=== PATIENT | female | born 1995 | race Asian ===

== ENCOUNTER 2023-02-19 10:02 | Emergency (ER) | payer OTHER, SELFPAY ==
[2023-02-19 10:12] VITALS: BP 113/73; PULSE 81; RESP 14; TEMP 36.1; O2SAT 98; BMI 29.2
[2023-02-19 10:56] LABS: COVID19 -Nasal RAPID Negative (Negative)
[2023-02-19 11:12] LABS: Strep Grp A by PCR Rapid Negative (Negative)
--- NOTE | 2023-02-19 11:13 | ED_ITS ---
HPI - URI/Sore Throat <Elkin Torres PA-C - Last Filed: 02/19/23 11:42> General Chief Complaint: Upper Respiratory Symptoms Stated Complaint: 9 weeks / severe congestion T-5 Time Seen by Provider: 02/19/23 10:53 Source: patient Mode of arrival: Ambulatory History of Present Illness HPI Narrative: 27-year-old female who is 9 weeks presents to the ED with 5 days of upper respiratory symptoms. Patient endorses a sore throat, chills, cough. Patient denies fever, chest pain, shortness of breath, abdominal pain, pelvic pain, pelvic cramping, vaginal bleeding, lightheadedness, dizziness, syncope. Patient states that her cough is somewhat productive, that she saw a tinge of blood in the sputum. Related Data Home Medications Medication Instructions Recorded Confirmed adalimumab 40 mg/0.8 mL 40 mg SUBCUT Q2W 01/23/23 02/19/23 subcutaneous syringe kit (Humira) budesonide 3 mg 9 mg PO DAILY 01/23/23 02/19/23 capsule,delayed,extended release calcium carbonate 500 mg-vitamin 1 tab PO DAILY 01/23/23 02/19/23 D3 3.125 mcg (125 unit) tablet cetirizine 10 mg tablet 10 mg PO DAILY PRN allergies 01/23/23 02/19/23 prenat.vits,braxton,fvs-mpry-mpmhb 1 tab PO DAILY 01/23/23 02/19/23 Allergies Allergy/AdvReac Type Severity Reaction Status Date / Time No Known Drug Allergies Allergy Verified 02/19/23 10:16 Review of Systems <Elkin Torres PA-C - Last Filed: 02/19/23 11:42> Review of Systems ROS Unobtainable: All systems reviewed & are unremarkable except as noted in HPI and below Constitutional Constitutional: Reports chills, Denies fatigue, Denies fever(s), Denies frequent falls, Denies lethargy and Denies weakness Eyes Eyes: Denies change in vision, Denies eye discharge, Denies irritation and Denies loss of vision ENT Ears, Nose, Mouth, and Throat: Denies change in voice, Denies dizziness, Denies neck pain, Reports sore throat and Denies throat swelling Cardiovascular Cardiovascular: Denies chest pain, Denies irregular heart rhythm, Denies lightheadedness, Denies palpitations, Denies dyspnea, Denies dyspnea on exertion and Denies orthopnea Respiratory Respiratory: Reports cough, Denies dyspnea, Denies dyspnea on exertion and Denies wheezing Gastrointestinal Gastrointestinal: Denies abdominal pain, Denies change in bowel habits, Denies diarrhea, Denies nausea and Denies vomiting Genitourinary Genitourinary: Denies hematuria, Denies flank pain, Denies urinary incontinence and Denies urinary urgency Musculoskeletal Musculoskeletal: Denies back pain, Denies muscle weakness, Denies neck pain, Denies numbness and Denies tingling Integumentary/Breasts Skin/Breast: Denies pruritus, Denies erythema, Denies rash and Denies wounds Neurologic Neurologic: Denies behavioral changes, Denies confusion, Denies dizziness, Denies frequent falls, Denies loss of vision, Denies numbness, Denies tingling and Denies weakness Psychiatric Psychiatric: Denies anxiety, Denies behavioral changes, Denies confusion, Denies depression, Denies homicidal ideation and Denies suicidal ideation Endocrine Endocrine: Denies fatigue, Denies flushing and Denies palpitations Hematologic/Lymphatic Hematologic/Lymphatic: Denies easy bruising Allergic/Immunologic Allergic/Immunologic: Denies urticaria, Denies throat swelling and Denies wheezing Patient History <Elkin Torres PA-C - Last Filed: 02/19/23 11:42> Medical History Ectopic (~02/2017) Migraine Seasonal allergies Surgical History H/O laparoscopy (~2014) H/O unilateral salpingectomy Family History Grandmother DVT (deep venous thrombosis) Hyperlipidemia Hypertension Mother DVT (deep venous thrombosis) Grandfather Hyperlipidemia Hypertension Father Family estrangement Social History marital status: unmarried,single number of children: 0 household members: other lives independently: Yes caregiver/support person: No housing: other [place], shared housing w/ other sailors) pets and animals: No education level: college (some college) 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: [employer] special dilia needs: No travel history: over 6 months ago seatbelt use: always water heater temp set < 120 deg: Yes working smoke detector in home: Yes fire extinguisher in home: Yes carbon monox detector in home: Yes firearms in home: No do you feel safe at home: Yes Smoking Status: Former smoker Tobacco: How many years used: 3 second hand exposure: No alcohol intake: former (occasionally when not ) substance use type: does not use during the past year weight has: increased > 10 lbs well-balanced diet: daily or most days daily servings fruits/ve or more times/day caffeine: No Type(s) of exercise: walking Smoking Status: Former smoker alcohol intake frequency: 0-2 drinks per day Substance Use Type: does not use Exam <Elkin Torres PA-C - Last Filed: 02/19/23 11:42> Narrative Exam Narrative: Const General:?cooperative, healthy appearing and comfortable [facility] Head:?normal to inspection Ears:?hearing grossly normal bilaterally Nose:?external nose normal Face and sinus:?normal facial exam and sinuses nontender Mouth:?oral mucosae normal Throat:?posterior oropharynx normal Eyes General:?appearance normal, both eyes and all related structures Neck Neck:?normal visual inspection and no lymphadenopathy noted Resp Effort & Inspection:?normal respiratory effort Auscultation:?clear to auscultation bilaterally Cardio Rate:?regular rate Rhythm:?regular rhythm Neuro General:?patient alert, patient awake and patient oriented x3 Initial Vital Signs Initial Vital Signs: Vital Signs Temperature 97.0 F L 02/19/23 10:12 Pulse Rate 81 02/19/23 10:12 Respiratory Rate 14 02/19/23 10:12 Blood Pressure 113/73 02/19/23 10:12 Pulse Oximetry 98 02/19/23 10:12 Oxygen Delivery Method Room Air 02/19/23 10:12 <Altagracia Ibarra DO - Last Filed: 02/19/23 19:38> Initial Vital Signs Initial Vital Signs: Vital Signs Temperature 97.0 F L 02/19/23 10:12 Pulse Rate 81 02/19/23 10:12 Respiratory Rate 14 02/19/23 10:12 Blood Pressure 113/73 02/19/23 10:12 Pulse Oximetry 98 02/19/23 10:12 Oxygen Delivery Method Room Air 02/19/23 10:12 Course <Elkin Torres PA-C - Last Filed: 02/19/23 11:42> Orders Ordered: ED Orders 02/19/23 11:43 Throat Culture Stat Vital Signs Vital signs: Vital Signs - 8 hr 02/19/23 10:12 02/19/23 11:31 Temperature 97.0 F L Pulse Rate 81 85 Respiratory Rate 14 24 Blood Pressure 113/73 117/64 Pulse Oximetry 98 98 Oxygen Delivery Method Room Air Room Air <DO Bonnie Barnett Last Filed: 02/19/23 19:38> Orders Ordered: ED Orders 02/19/23 11:43 Throat Culture Stat Vital Signs Vital signs: Vital Signs - 8 hr 02/19/23 10:12 02/19/23 11:31 Temperature 97.0 F L Pulse Rate 81 85 Respiratory Rate 14 24 Blood Pressure 113/73 117/64 Pulse Oximetry 98 98 Oxygen Delivery Method Room Air Room Air MDM - URI/Sore Throat <JAN Taylor Last Filed: 02/19/23 11:42> Lab Data Labs: Lab Results 02/19/23 02/19/23 Range/Units 10:25 10:25 SARS-CoV-2 (PCR) Negative (Negative) Group A Strep (PCR) Negative (Negative) MDM Narrative Medical decision making narrative: 27-year-old female who is 9 weeks presents to the ED with 5 days of upper respiratory symptoms. Concern for strep throat versus viral URI versus other. Strep test and COVID-19 negative. Patient's symptoms are most likely consistent with a viral URI. Highly unlikely PE given history. Recommend follow-up with PCP as soon as possible. ED return precautions were discussed with patient. Patient verbalized understanding. Medical records reviewed: Yes <DO Bonnie Barnett Last Filed: 02/19/23 19:38> Lab Data Labs: Lab Results 02/19/23 02/19/23 Range/Units 10:25 10:25 SARS-CoV-2 (PCR) Negative (Negative) Group A Strep (PCR) Negative (Negative) Discharge Plan Departure Patient Disposition: Home Clinical Impression: Upper respiratory infection Instructions: DI for Viral Upper Respiratory Infection -- Adult Activity Restrictions/Additional Instructions: You were evaluated in the ED today for a cough and sore throat. You tested negative for COVID-19 and strep throat. Your symptoms are likely due to a viral upper respiratory infection. You may take Tylenol for aches and pains. You may also take an ywsj-gah-noloxes cough medicine that contains only the ingredient dextromethorphan which is safe during . Please ensure that it does not contain other ingredients including alcohol. Please follow-up with your PCP as soon as possible. Return to the ED if you experience any chest pain or trouble breathing. Prescriptions: No Action prenat.vits,braxton,oxp-xlch-axrih Tablet 1 tab PO DAILY Humira 40 mg/0.8 mL syringe kit 40 mg SUBCUT Q2W budesonide 3 mg capsule,delayed,extend.release 9 mg PO DAILY calcium carbonate-vitamin D3 500 mg-3.125 mcg (125 unit) tablet 1 tab PO DAILY cetirizine 10 mg tablet 10 mg PO DAILY PRN (Reason: allergies) Referrals: ProviderJohann [Primary Care Provider] - Stand Alone Forms: Patient Portal/API <Altagracia Ibarra DO - Last Filed: 02/19/23 19:38> Cosign ED Attending Nataliaature Attestation: I was immediately available in the department for consultation. Documentation has been reviewed.
[2023-02-19 11:31] VITALS: BP 117/64; PULSE 85; RESP 24; O2SAT 98
--- NOTE | 2023-02-23 08:15 | PC.NURSE ---
This patient called into the the department to checking on her culture results as she received a call from the department yesterday. 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 Patient asked for a work note due to illness. This RN asked Dr. Ibarra for permission to add a work note to cover the patient to the [address] Ibarra agreed due to her diagnosis. Work note submitted into patient stand alone forms.
--- NOTE | 2023-02-23 09:22 | PC.NURSE ---
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
== END 2023-02-19 11:43 | disposition home or self-care (01) ==
PROVIDERS: Emergency Medicine; Emergency Provider Student in an Organized Health Care Education/Training Program
DX: J06.9 Acute upper respiratory infection, unspecified (principal); Z20.822 Contact with and (suspected) exposure to COVID-19
CPT/HCPCS: 87070; 87147; 87635; 87651; 99282; C9803

== ENCOUNTER 2023-03-02 23:53 | Emergency (ER) | payer OTHER, SELFPAY ==
[2023-03-03 00:03] VITALS: BP 113/76; PULSE 83; RESP 17; TEMP 36.6; O2SAT 97; BMI 29.5
[2023-03-03 00:13] VITALS: BP 109/53; PULSE 81; RESP 18; O2SAT 99
--- NOTE | 2023-03-03 00:37 | ED_ITS ---
HPI - General Adult General Chief complaint: OB/Uterine Contractions Stated complaint: 11 weeks , severe cramping, bleeding Time Seen by Provider: 03/03/23 00:37 Source: patient Mode of arrival: Ambulatory History of Present Illness HPI narrative: 27-year-old currently at 11 weeks, history of Crohn's disease on Humira and budesonide presents with vaginal bleeding. She was seen by her primary application support analyst on February 21 with a confirmed intrauterine diagnosed with ultrasound in the office. She reports acute onset of vaginal bleeding initially spotting and slightly heavier over the last 4 hours. She is having some lower abdominal cramping and vaginal cramping as well. No fevers, dysuria, diarrhea or constipation. No abdominal pain. Related Data Home Medications Medication Instructions Recorded Confirmed adalimumab 40 mg/0.8 mL 40 mg SUBCUT Q2W 01/23/23 02/21/23 subcutaneous syringe kit (Humira) budesonide 3 mg 9 mg PO DAILY 01/23/23 02/21/23 capsule,delayed,extended release calcium carbonate 500 mg-vitamin 1 tab PO DAILY 01/23/23 02/21/23 D3 3.125 mcg (125 unit) tablet cetirizine 10 mg tablet 10 mg PO DAILY PRN allergies 01/23/23 02/21/23 prenat.vits,braxton,yly-tgnh-hjhrt 1 tab PO DAILY 01/23/23 02/21/23 Previous Rx's Medication Instructions Recorded ondansetron 4 mg disintegrating 4 mg PO Q6H PRN nausea and 02/21/23 tablet vomiting #20 tabs amoxicillin 500 mg tablet 500 mg PO BID #20 tabs 02/22/23 Allergies Allergy/AdvReac Type Severity Reaction Status Date / Time No Known Drug Allergies Allergy Verified 02/21/23 11:26 Review of Systems Review of Systems Narrative: Pertinent positive and negative findings as per HPI Patient History Medical History Ectopic (~02/2017) Migraine Seasonal allergies Surgical History H/O laparoscopy (~2014) H/O unilateral salpingectomy Family History Grandmother DVT (deep venous thrombosis) Hyperlipidemia Hypertension Mother DVT (deep venous thrombosis) Grandfather Hyperlipidemia Hypertension Father Family estrangement Social History marital status: unmarried,single number of children: 0 household members: other lives independently: Yes caregiver/support person: No housing: other ([place], shared housing w/ other sailors) pets and animals: No education level: college (some college) 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: Confucianism special dilia needs: No travel history: over 6 months ago seatbelt use: always water heater temp set < 120 deg: Yes working smoke detector in home: Yes fire extinguisher in home: Yes carbon monox detector in home: Yes firearms in home: No do you feel safe at home: Yes Smoking Status: Former smoker Tobacco: How many years used: 3 second hand exposure: No alcohol intake: former (occasionally when not ) substance use type: does not use during the past year weight has: increased > 10 lbs well-balanced diet: daily or most days daily servings fruits/ve or more times/day caffeine: No Type(s) of exercise: walking Smoking Status: Former smoker alcohol intake frequency: 0-2 drinks per day Substance Use Type: does not use Exam Initial Vital Signs Initial Vital Signs: Vital Signs Temperature 97.8 F 03/03/23 00:03 Pulse Rate 83 03/03/23 00:03 Respiratory Rate 17 03/03/23 00:03 Blood Pressure 113/76 03/03/23 00:03 Pulse Oximetry 97 03/03/23 00:03 Oxygen Delivery Method Room Air 03/03/23 00:03 General: Alert appropriate in no acute distress Respiratory: Able to speak in full sentences, no obvious respiratory distress Skin: No obvious rashes, warm and dry Neurologic: Grossly intact no obvious asymmetries or abnormalities Psych: appropriate insight and affect, cooperative Bedside ultrasound shows a viable intrauterine fetus with a heart rate at 160. There is a large subchorionic hemorrhage with clot measuring 3 x 3 x 4 cm. Bladder is not full enough to see cervical length transabdominally. Course Orders Ordered: ED Orders 03/03/23 01:00 ABO RH Type Stat CBC Auto Diff [Complete Blood Count AUTO DIFF] Stat CMP [Comprehensive Metabolic Panel] Stat Vital Signs Vital signs: Vital Signs - 8 hr 03/03/23 00:03 03/03/23 00:13 03/03/23 01:37 Temperature 97.8 F Pulse Rate 83 81 84 Respiratory Rate 17 18 18 Blood Pressure 113/76 109/53 L 119/71 Pulse Oximetry 97 99 98 Oxygen Delivery Method Room Air Room Air Room Air Medical Decision Making Lab Data 03/03/23 01:00 03/03/23 01:00 Labs: Lab Results 03/03/23 03/03/23 03/03/23 Range/Units 01:00 01:00 01:00 WBC 12.0 H (4.5-11.0) X10^3/uL RBC 3.67 L (4.0-5.2) X10^6/uL Hgb 11.3 L (12.0-16.0) g/dL Hct 32.6 L (36-46) % MCV 88.7 (80-100) fL MCH 30.7 (26-34) PG MCHC 34.6 (30-36) % RDW 13.3 (11.6-14.8) % Plt Count 350 (150-400) X10^3/uL Neut % (Auto) 53.2 (50-75) % Lymph % (Auto) 35.4 (25-40) % Jay % (Auto) 7.9 (3-14) % Eos % (Auto) 3.0 (2-4) % Baso % (Auto) 0.5 (0-2) % Neut # (Auto) 6400 (4899-5114) /uL Lymph # (Auto) 4300 (0183-0671) /uL Jay # (Auto) 1000 H (0-900) /uL Eos # (Auto) 400 (0-450) /uL Baso # (Auto) 100 (0-100) /uL Sodium 135 L (137-145) mmol/L Potassium 3.8 (3.4-5.1) mmol/L Chloride 103 (98-107) mmol/L Carbon Dioxide 24 (22-32) mmol/L BUN 11 (7-17) mg/dL Creatinine 0.60 (0.52-1.04) mg/dL Estimated GFR > 60 (>60) mL/min BUN/Creatinine Ratio 18.3 (6-22) Glucose 98 (70-100) mg/dL Calcium 8.9 (8.4-10.2) mg/dL Total Bilirubin 0.3 (0.2-1.3) mg/dL AST 21 (14-36) IU/L ALT 33 (<35) IU/L Alkaline Phosphatase 38 (38-126) U/L Total Protein 7.4 (6.3-8.2) g/dL Albumin 4.1 (3.5-5.0) g/dL Globulin 3.3 (1.7-4.1) g/dL Albumin/Globulin Ratio 1.2 (1.0-2.8) Blood Type O Positive Urine Dip Bedside Urine Glucose Negative Bedside Urine Bilirubin - Negative Bedside Urine Ketone - Negative Urine Specific Clarks 1.015 Bedside Urine Occult Blood - Negative Bedside Urine pH 6 Bedside Urine Protein - Negative Bedside Urine Urobilinogen - Negative Bedside Urine Nitrite - Negative Bedside Urine Leukocytes - Negative Esterase Point of care testing: Urine Dip Bedside Urine Glucose Negative Bedside Urine Bilirubin - Negative Bedside Urine Ketone - Negative Urine Specific Clarks 1.015 Bedside Urine Occult Blood - Negative Bedside Urine pH 6 Bedside Urine Protein - Negative Bedside Urine Urobilinogen - Negative Bedside Urine Nitrite - Negative Bedside Urine Leukocytes - Negative Esterase MDM Narrative Medical decision making narrative: CC: Vaginal bleeding at 13 weeks any uterine . Acute problem uncertain prognosis Complicating co-morbidities: Prior ectopic Data collected from: patient, Medical records reviewed: OB intake note from February 21 is reviewed. Bedside ultrasound at that time did confirm intrauterine Differential considered: Cervical bleeding, miscarriage, subchorionic hemorrhage Exam documented above, pertinent findings include: No contractions. Bedside ultrasound confirms a viable intrauterine fetus and a 4 x 3 x 3 cm subchorionic blood clot Lab Test results independently reviewed as above. Pertinent findings: CBC, CMP and Rh factor are all ordered to be reviewed by Dr. White on Sunday. Discussion: Care and case reviewed with Dr. White. She requested blood work to confirm Rh. She agreed with full bed rest and will see the patient on Sunday. Findings reviewed with the patient, reviewed what full bed rest truly means and informed her that Dr. White will be contacting her for follow-up on Sunday. She is safe for discharge home Discharge Plan Departure Patient Disposition: Home Clinical Impression: Subchorionic hematoma in second trimester Qualifiers: Fetus number: single or unspecified fetus Qualified Code(s): O41.8X20 - Other specified disorders of amniotic fluid and membranes, second trimester, not applicable or unspecified Instructions: DI for Miscarriage Activity Restrictions/Additional Instructions: Thank you for coming in today Your baby is alive and well this evening with a heart rate at 160 beats per minute which is quite reassuring. You are having some bleeding under your placenta. There is a blood clot there and you will likely continue to have a small amount of bleeding throughout the rest of the weekend. I have reviewed your case with Dr. White and she will contact you on Sunday. Please expect to see her in clinic on Sunday with a repeat ultrasound in clinic. In the meantime, I have recommended complete bed and pelvic rest which means as minimal activity as you can tolerate, nor orgasms and no fingers, penis's or toys in your vagina. If you find that you are having heavier bleeding or new findings it is appropriate to return to the emergency department Prescriptions: No Action prenat.vits,braxton,bdx-jgfp-tyafg Tablet 1 tab PO DAILY Humira 40 mg/0.8 mL syringe kit 40 mg SUBCUT Q2W budesonide 3 mg capsule,delayed,extend.release 9 mg PO DAILY calcium carbonate-vitamin D3 500 mg-3.125 mcg (125 unit) tablet 1 tab PO DAILY cetirizine 10 mg tablet 10 mg PO DAILY PRN (Reason: allergies) ondansetron 4 mg tablet,disintegrating 4 mg PO Q6H PRN (Reason: nausea and vomiting) Qty: 20 2RF amoxicillin 500 mg tablet 500 mg PO BID Qty: 20 0RF Referrals: ProviderJohann [Primary Care Provider] - Stand Alone Forms: Patient Portal/API
[2023-03-03 01:10] LABS: Add Manual Diff / Slide Review NO; Basophils Absolute Auto 100 /uL (0-100); Basophils Percent Auto 0.5 % (0-2); Eosinophils Absolute Auto 400 /uL (0-450); Hematocrit 32.6 % (36-46); Hemoglobin 11.3 g/dL (12.0-16.0); Lymphocytes Absolute Auto 4300 /uL (1100-4500); Lymphocytes Percent Auto 35.4 % (25-40); Mean Corpuscular HGB Conc 34.6 % (30-36); Mean Corpuscular Hemoglobin 30.7 PG (26-34); Mean Corpuscular Volume 88.7 fL (80-100); Monocytes Absolute Auto 1000 /uL (0-900); Monocytes Percent Auto 7.9 % (3-14); Neutrophils Absolute Auto 6400 /uL (1500-7000); Neutrophils Percent Auto 53.2 % (50-75); Platelet Count 350 X10^3/uL (150-400); Red Blood Cell Count 3.67 X10^6/uL (4.0-5.2); Red Cell Distribution Width 13.3 % (11.6-14.8)
[2023-03-03 01:26] LABS: Alanine Aminotransferase 33 IU/L (<35); Albumin 4.1 g/dL (3.5-5.0); Albumin Globulin Ratio 1.2 (1.0-2.8); Alkaline Phosphatase 38 U/L (38-126); Aspartate Aminotransferase 21 IU/L (14-36); BUN Creatinine Ratio 18.3 (6-22); Bilirubin Total 0.3 mg/dL (0.2-1.3); Blood Urea Nitrogen 11 mg/dL (7-17); Calcium 8.9 mg/dL (8.4-10.2); Carbon Dioxide 24 mmol/L (22-32); Chloride 103 mmol/L (98-107); Estimated Glomerular Filt Rate > 60 mL/min (>60); Globulin 3.3 g/dL (1.7-4.1); Glucose 98 mg/dL (70-100); HEMOLYSIS < 15 (0-50); Potassium 3.8 mmol/L (3.4-5.1); Sodium 135 mmol/L (137-145); Total Protein 7.4 g/dL (6.3-8.2)
[2023-03-03 01:37] VITALS: BP 119/71; PULSE 84; RESP 18; O2SAT 98
== END 2023-03-03 01:37 | disposition home or self-care (01) ==
PROVIDERS: Emergency Provider Emergency Medicine
DX: O41.8X20 Other specified disorders of amniotic fluid and membranes, second trimester, not applicable or unspecified (principal); Z3A.11 11 weeks gestation of pregnancy
CPT/HCPCS: 36415; 80053; 81003; 85025; 86900; 86901; 99283

== ENCOUNTER → 2023-04-06 08:41 | Outpatient (CLI) | payer OTHER, SELFPAY ==
[2023-04-09 11:08] LABS: Candida species Positive (Negative); Gardnerella vaginalis Positive (Negative); Trichomoas vaginalis Negative (Negative)
== END ==
PROVIDERS: Visit Provider Specialist
DX: Z34.80 Encounter for supervision of other normal pregnancy, unspecified trimester (principal); N89.8 Other specified noninflammatory disorders of vagina
CPT/HCPCS: 87480; 87510; 87660

== ENCOUNTER → 2023-04-12 14:39 | Outpatient (CLI) | payer OTHER, SELFPAY ==
[2023-04-12 16:17] LABS: Add Manual Diff / Slide Review NO; Basophils Absolute Auto 0 /uL (0-100); Basophils Percent Auto 0.3 % (0-2); Eosinophils Absolute Auto 200 /uL (0-450); Eosinophils Percent Auto 2.3 % (2-4); Hematocrit 36.1 % (36-46); Hemoglobin 12.5 g/dL (12.0-16.0); Lymphocytes Absolute Auto 3100 /uL (1100-4500); Lymphocytes Percent Auto 30.7 % (25-40); Mean Corpuscular HGB Conc 34.6 % (30-36); Mean Corpuscular Hemoglobin 30.3 PG (26-34); Mean Corpuscular Volume 87.7 fL (80-100); Monocytes Absolute Auto 600 /uL (0-900); Monocytes Percent Auto 5.9 % (3-14); Neutrophils Absolute Auto 6200 /uL (1500-7000); Neutrophils Percent Auto 60.8 % (50-75); Platelet Count 298 X10^3/uL (150-400); Red Blood Cell Count 4.11 X10^6/uL (4.0-5.2); Red Cell Distribution Width 13.2 % (11.6-14.8); White Blood Cell Count 10.2 X10^3/uL (4.5-11.0)
[2023-04-13 09:17] LABS: Varicella IgG Antibody 659 index (Immune >165)
[2023-04-13 11:58] LABS: RPR Screen Non Reactive (Non Reactive)
[2023-04-13 17:40] LABS: Hepatitis B Surface Antigen NEGATIVE s/c (NEGATIVE); Rubella Antibody IgG 18.1 IU/mL (>15)
[2023-04-13 17:56] LABS: HIV 1 & 2 Ab/Ag 4th Gen Combo NEGATIVE (NEGATIVE); Hep C Virus Ab w/Reflex Quant NEGATIVE s/c (NEGATIVE)
== END ==
PROVIDERS: PCP Obstetrics & Gynecology; Referring Provider Specialist; Visit Provider Specialist
DX: Z34.81 Encounter for supervision of other normal pregnancy, first trimester (principal)
CPT/HCPCS: 36415; 80055; 86787; 86803; 86850; 86900; 86901; 87086; 87389

== ENCOUNTER → 2023-05-07 10:23 | Outpatient (CLI) | payer OTHER, SELFPAY ==
--- NOTE | 2023-05-07 10:24 | DI.US.S_ITS ---
PROCEDURE: US OB >= 14 WEEKS FETUS INDICATIONS: ANATOMY OUTSIDE/PRIOR DATING DATA: Last menstrual period (LMP): 12/17/2022 LMP-based estimated date of delivery (VALENTIN): 09/23/2023 First dating scan (date and location): 02/21/2023 Estimated date of delivery (VALENTIN) from first dating scan: 09/23/2023 TECHNIQUE: Real-time scanning was performed of the fetus, with image documentation and biometric measurements. Endovaginal scanning: Not performed. COMPARISON: [facility], , OB >= 14 WEEKS FETUS, 04/12/2023, 14:30. FINDINGS: General: A single living intrauterine gestation is present. Presentation: Transverse Placenta: Placental position is posterior, without previa. Amniotic fluid index: 16.7 cm, normal range is 5-24 cm. Single deepest vertical pocket is 5.2 cm. heart rate: 140 beats per minute. Maternal cervical canal: 3.8 cm long. Normal lower limit is 2.5 cm. biometrics: Biparietal diameter: 4.9 cm, 20 weeks 5 days Head circumference: 18.0 cm, 20 weeks 3 days Abdominal circumference: 15.8 cm, 21 weeks 0 days Femur length: 3.6 cm, 21 weeks 3 days Clinically estimated gestational age: 20 weeks 1 day Composite gestational age from present scan: 20 weeks 6 days Estimated weight and percentile: 399 g, 91st percentile Anatomic survey: Neuro: Ventricles are non-dilated at less than 10 mm. Cisterna magna is normal at 3-11 mm. Cerebellum is normal in size and morphology. Nuchal skin fold: Normal at less than 6 mm between 14-21 weeks gestational age. Face: Nose and lips, facial profile are normal. Spine: No evidence for spina bifida. Heart: 4-chambered heart is present, with normal ventricular outflow tracts. Diaphragm: Diaphragm is intact. Stomach: Left-sided stomach is present. Kidneys: No hydronephrosis. Normal is less than 5 mm in 2nd trimester, less than 7 mm in 3rd trimester. Cord: 3-vessel cord has orthotopic insertion. Bladder: Normal in size. Extremities: All 4 extremities identified. IMPRESSION: 1. Single live intrauterine . 2. Estimated weight is at the 91st percentile for gestational age. 3. anatomic survey is otherwise within normal limits. We strive to produce accurate, complete, and clear reports of imaging services. To assist us in improving patient care, this report was composed using standard report templates and voice recognition software. Therefore, it may contain abnormal punctuation, insertions and/or omissions. Occasional wrong-word or sound-alike substitutions may occur. Though we review the report and make efforts to correct it, we do recommend that the report be read carefully in proper context to recognize any text inaccuracies. Approved by: Lucio Banks M.D. on 05/07/2023 at 12:13
== END ==
PROVIDERS: PCP Obstetrics & Gynecology; Referring Provider Specialist; Visit Provider Specialist
DX: Z34.82 Encounter for supervision of other normal pregnancy, second trimester (principal); Z3A.20 20 weeks gestation of pregnancy
CPT/HCPCS: 76811

== ENCOUNTER 2024-07-08 15:15 | Outpatient (RCR) | payer OTHER, SELFPAY ==
--- NOTE | 2024-03-11 12:51 | PT.OIE ---
Current Diagnoses Stress incontinence (female) (male) (03/11/24) Encounter for routine follow-up (03/11/24) Past Medical History (Last Reviewed 02/19/23 @ 11:37 by Elkin Torres PA-C) Ectopic (~02/2017) Migraine Seasonal allergies Past Surgical History (Last Reviewed 02/19/23 @ 11:37 by Elkin Torres PA-C) H/O laparoscopy (~2014) H/O unilateral salpingectomy Visit Care Team Role Provider Type Lulu White MD Primary Care Provider Physician Specialty: Gynecology STRIPE MATCHER Obstetrics Address: [address] [place] [address], [address] Email: [email or web address] Marilu Mock MD, PHD Family Provider Non-Staff Specialty: Internal Medicine Address: [address] [place] [address], [address] Email: Lv Barker DO Attending Provider Non-Staff Referring Provider Specialty: Family Practice Address: [address] [place] [address], [address] Fax: Email: Physical Therapy Initial Evaluation PT-OP-A Visit Information Start: 03/11/24 08:17 Freq: Status: Active Protocol: Document 03/11/24 09:45 [facility] (Rec: 03/11/24 09:45 [facility] [id number]) Out-Patient Physical Therapy Visit Information Visit Information Visit Type Initial Evaluation Visit Start Time 09:45 Visit Stop Time 10:30 Visit Number 1 Evaluation Information Evaluation Date 03/11/24 PT-OP-B Current Condition Start: 03/11/24 08:17 Freq: Status: Active Protocol: Document 03/11/24 09:45 [facility] (Rec: 03/11/24 08:22 [facility] [id number]) Current Condition History of Current Condition Onset Date during her 3rd trimester of Current Complaints anterior L pelvic and hip pain , stress incontinence History of Current Condition 28 yo female appr 6 months from c- section delivery with stress incontinence symptoms and pelvic pain. The left side of her hip and anterior pelvis it started to get really painful and she fells like she has to put it back in place. She reports when she moves her hip to realign it she will notice leakage and when she coughs and sneezes she leaks. Her baby was 7# 12 oz She has been primarly walking for exercises and does stair master SHe has a history of chrons and Ulcerative colitis. She works in [email or web address] for the [employer]. She is primarily sitting. She does have some complaints of pelvic heaviness. Treatment Goals Patient/Caregiver Goals Treatment goals include reducing both pain and urinary incontinence Prior Functional Status Baseline Function- ADL's Independent Baseline Function- Mobility Independent Baseline Function- Other prior to [place] reports no symptoms of anterior hip pain or urinary incontinence PT-OP-C Subjective Start: 03/11/24 08:17 Freq: Status: Active Protocol: Document 03/11/24 09:45 [facility] (Rec: 03/12/24 12:35 [facility] [id number]) Patient Questionnaires Pelvic Pain and Urgency/Frequency Patient Symptom Scale Pelvic Pain Score 13 OP-PT Pain Assessment Pain Assessment Grid Paper Pain Assessment Grid Completed Yes Location left anterior hip Pain Location Details right anterior hip Intensity 3 Scale Used Numeric (0 - 10) Description Aching,Pinching,Pressure,With Movement Frequency Intermittent Pain Aggravating Factors Changing Position,Standing PT-OP-F Manual Assessment Start: 03/11/24 08:17 Freq: Status: Active Protocol: Document 03/11/24 09:45 [facility] (Rec: 03/12/24 12:35 [facility] [id number]) Manual Assessments Soft Tissue Assessment Soft Tissue Mobility Assessment left lateral wall of the levator ani guarded and tight iliopsoas tightness B but R > L + prabha test bilaterally Joint Mobility Assessment Joint Mobility Assessment post SI joint instability with + ASLR test PT-OP-I Pelvic Floor Start: 03/11/24 08:17 Freq: Status: Active Protocol: Document 03/11/24 09:45 [facility] (Rec: 03/12/24 12:35 [facility] [id number]) Pelvic Floor Assessment Urine Pelvic Floor Surgery No Urinary Symptoms Urge Sensation Other Urinary Symptoms nocturia x 2 leakage with exercise and with change of positions such as sit-stand Leakage Size Medium Leakage Cause Cough,Exercise,Lifting,Sneeze, Urge Leaks Per Day 2 Voiding Frequency 11-14 Nocturia 2 Urine Pad Type Panty Liner Pelvic Clock Pelvic Clock 3-6 Guarding,Tightness Contraction Ability Voluntary Contraction Weak Voluntary Relaxation Weak Manual Muscle Testing Left 2 Manual Muscle Testing Right 2 Manual Muscle Testing Anterior 2 Manual Muscle Testing Posterior 2 Muscle Endurance (Seconds) 5 PT-OP-J Posture/Palpation/Skin Start: 03/11/24 08:17 Freq: Status: Active Protocol: Document 03/11/24 09:45 [facility] (Rec: 03/12/24 12:35 [facility] [id number]) Posture Evaluation Comments Posture Comments [place] stands in a increased anterior pelvic tilt Palpation Assessment Location anterior left hip Palpation Findings Soft Tissue Tightness,Muscle Guarding,Tenderness Palpation Details tenderness at the femoral head onterirly on the left, symptoms increase with PROM and AROM hip flexion PT-OP-K Range of Motion Start: 03/12/24 12:35 Freq: Status: Active Protocol: Document 03/11/24 09:45 [facility] (Rec: 03/12/24 12:36 [facility] [id number]) Hip Goniometric Range of Motion Hip Left Hip ROM WFL No Testing Position Supine Flexion w/Knee Flexed 110 Comments anterior pinching pain at end range hip flexion of 110 on the left tightness in the iliopsoas limiting hip extension B in the prabha test position PT-OP-Q Treatments Start: 03/11/24 08:17 Freq: Status: Active Protocol: Document 03/11/24 09:45 [facility] (Rec: 03/11/24 13:45 [facility] [id number]) Therapeutic Exercises Supine Exercises single knee to chest Reps/Minutes hold 1-2 min modified squat stretch Reps/Minutes hold 1-2 min Other Exercises rock backs Reps/Minutes 10 reps cues to hinge at the hips 1/2 kneeling hip flexor stretch Reps/Minutes hold 30 sec x 2 B PT-OP-T Assessment and Plan Start: 03/11/24 08:17 Freq: Status: Active Protocol: Document 03/11/24 09:45 [facility] (Rec: 03/12/24 12:51 [facility] [id number]) Physical Therapy Assessment Rehab Potential Rehabilitation Potential Excellent Evaluation Complexity Number of Personal Factors/Comorbidities 0 Number of Body Systems Impaired 1-2 Clinical Presentation at Evaluation Stable Impairments Impairments Pain,Soft Tissue Mobility, Strength,Tone Other Impairments urinary leakage Goals 4 Impairment Decreased pelvic floor strength and endurance Short Term Goal (STG) [place] is able to sustain a pelvic floor contraction x 10 seconds in supine STG Duration 4 weeks Vp Care Management Goal (LTG) [place] is able to sustain a pelvic floor contraction in standing x 5 seconds LTG Duration 12 weeks 3 Impairment Urinary stress incontinence occuring approx 2 times per day with post pelvic floor weakness Short Term Goal (STG) [place] is educated on a home program for pelvic floor strengtheing STG Duration 4 weeks Snf Goal (LTG) [place] reports a overall reduction of urinary incontinence LTG Duration 12 weeks 2 Impairment Iliopsoas tightness B contributing to a anterior pelvic tilt and hip impingement symptoms Short Term Goal (STG) [place] is educated in iliopsoas stretches and neutral pelvic alignment STG Duration 4 weeks Vp Care Management Goal (LTG) [place] presents with improved length of the iliopsoas B and is able to bingo caller a neutral pelvic position LTG Duration 12 weeks 1 Impairment Anterior hip and pelvic pain rated 3/10 that developed during Snf Goal (LTG) [place] reports a overall reduction of pain in the anterior hip to 0-1/10 LTG Duration 12 weeks Assessment Summary Assessment [place]a is a 28 year old female who is 6 month . She is referred for pelvic floor weakness with urinary urge and stress incontinence as well as anterior left hip and pelvic pain. [place]a presents with post core weakess and SI joint instability. She has iliopsoas tightness B R>L. She is presenting with some hip impingement symptoms on the left and her left anterior pelvic and hip pain is rated 3/10. Her pain worsens with hip flexion. With examination of the pelvic floor she is guarded and tight on her left side and this may be contributing to the left sided anterior hip and pelvic pain she is experiencing. She tests weak 2/5 MMT in all granados of the levator ani. She lacks endurance to sustain a pelvic floor contraction. She underwent a C section delivery and her scar appears well healed. She would benefit from a core strengthening program for SI joint stabilization and working on stretches to reduce tension in the iliopsoas to help with SI and hip alignment as well as pelvic floor strength and endurance training. [place]a is a good candidate for PT Physical Therapy Plan Frequency and Duration Frequency of Treatment 1x/Week Duration of treatment (weeks) 12 Plan of Care Start Date 03/11/24 Plan of Care End Date 06/03/24 Therapeutic Interventions Therapeutic Interventions Home Exercise Program,Manual Therapy,Neuromuscular Re- education,Patient/Caregiver Education,Self-Care/Home Management,Soft Tissue Mobilization,Therapeutic Exercises Modalities Biofeedback Next Visit Focus/Plan Next Note Type Treatment Note Next Visit Plan Review stretches given at today's visit, begin EMG biofeeback for relaxed awareness of the pelvic floor and education on relaxed awareness of the pelvic floor. If [place]a is able to relax the left lateral wall of the levator ani begin endurance training.
--- NOTE | 2024-03-12 12:52 | PT.OPPOC ---
Physical, Occupational & Speech Therapy At [facility] Current Diagnoses Stress incontinence (female) (male) (03/11/24) Encounter for routine follow-up (03/11/24) Visit Care Team Role Provider Type Lulu White MD Primary Care Provider Physician Specialty: Gynecology ORDER CALLER Obstetrics Address: [address] [place] [address], [address] Email: [email or web address] Marilu Mock MD, PHD Family Provider Non-Staff Specialty: Internal Medicine Address: [address] [place] [address], [phone] Email: Lv Barker DO Attending Provider Non-Staff Referring Provider Specialty: Family Practice Address: [address] [place] [address], [address] Fax: Email: Plan Of Care PT-OP-T Assessment and Plan Start: 03/11/24 08:17 Freq: Status: Active Protocol: Document 03/11/24 09:45 [facility] (Rec: 03/12/24 12:51 [facility] [id number]) Physical Therapy Assessment Rehab Potential Rehabilitation Potential Excellent Evaluation Complexity Number of Personal Factors/Comorbidities 0 Number of Body Systems Impaired 1-2 Clinical Presentation at Evaluation Stable Impairments Impairments Pain,Soft Tissue Mobility, Strength,Tone Other Impairments urinary leakage Goals 4 Impairment Decreased pelvic floor strength and endurance Short Term Goal (STG) [place] is able to sustain a pelvic floor contraction x 10 seconds in supine STG Duration 4 weeks Shower Room Attendant Goal (LTG) [place] is able to sustain a pelvic floor contraction in standing x 5 seconds LTG Duration 12 weeks 3 Impairment Urinary stress incontinence occurring approx 2 times per day with post pelvic floor weakness Short Term Goal (STG) [place] is educated on a home program for pelvic floor strengthening STG Duration 4 weeks Shower Room Attendant Goal (LTG) [place] reports a overall reduction of urinary incontinence LTG Duration 12 weeks 2 Impairment Iliopsoas tightness B contributing to a anterior pelvic tilt and hip impingement symptoms Short Term Goal (STG) [place] is educated in iliopsoas stretches and neutral pelvic alignment STG Duration 4 weeks Group Home Goal (LTG) [place] presents with improved length of the iliopsoas B and is able to frankfurter inspector a neutral pelvic position LTG Duration 12 weeks 1 Impairment Anterior hip and pelvic pain rated 3/10 that developed during Shower Room Attendant Goal (LTG) [place] reports a overall reduction of pain in the anterior hip to 0-1/10 LTG Duration 12 weeks Assessment Summary Assessment [place]a is a 28 year old female who is 6 month . She is referred for pelvic floor weakness with urinary urge and stress incontinence as well as anterior left hip and pelvic pain. [place] presents with post core weakess and SI joint instability. She has iliopsoas tightness B R>L. She is presenting with some hip impingement symptoms on the left and her left anterior pelvic and hip pain is rated 3/10. Her pain worsens with hip flexion. With examination of the pelvic floor she is guarded and tight on her left side and this may be contributing to the left sided anterior hip and pelvic pain she is experiencing. She tests weak 2/5 MMT in all granados of the levator ani. She lacks endurance to sustain a pelvic floor contraction. She underwent a C section delivery and her scar appears well healed. She would benefit from a core strengthening program for SI joint stabilization and working on stretches to reduce tension in the iliopsoas to help with SI and hip alignment as well as pelvic floor strength and endurance training. [place] is a good candidate for PT Physical Therapy Plan Frequency and Duration Frequency of Treatment 1x/Week Duration of treatment (weeks) 12 Plan of Care Start Date 03/11/24 Plan of Care End Date 06/03/24 Therapeutic Interventions Therapeutic Interventions Home Exercise Program,Manual Therapy,Neuromuscular Re- education,Patient/Caregiver Education,Self-Care/Home Management,Soft Tissue Mobilization,Therapeutic Exercises Modalities Biofeedback Next Visit Focus/Plan Next Note Type Treatment Note Next Visit Plan Review stretches given at today's visit, begin EMG biofeeback for relaxed awareness of the pelvic floor and education on relaxed awareness of the pelvic floor. If [place] is able to relax the left lateral wall of the levator ani begin endurance training. Plan of Care Dates Plan of Care Start Date 03/11/24 Plan of Care End Date 06/03/24 Electronically Signed by: Cassy Ramirez, PT 03/12/24 1181 If you are in agreement with this Plan of Care, please return a signed and dated copy. I have reviewed this Plan of Care and certify that the skilled therapy services above are required to meet the patient?s needs. Physician Signature Date Printed Name and Credentials Clinical Instructor Signature Printed Name and Credentials
--- NOTE | 2024-03-25 16:27 | PT.OTN ---
Current Diagnoses Stress incontinence (female) (male) (03/25/24) Encounter for routine follow-up (03/25/24) Physical Therapy Treatment Note PT-OP-A Visit Information Start: 03/11/24 08:17 Freq: Status: Active Protocol: Document 03/25/24 09:54 [facility] (Rec: 03/25/24 10:35 [facility] [id number]) Out-Patient Physical Therapy Visit Information Visit Information Visit Type Treatment Note Visit Start Time 09:53 Visit Stop Time 10:30 Visit Number 2 PT-OP-B Current Condition Start: 03/11/24 08:17 Freq: Status: Active Protocol: Document 03/11/24 09:45 [facility] (Rec: 03/11/24 08:22 [facility] [id number]) Current Condition History of Current Condition Onset Date during her 3rd trimester of Current Complaints anterior L pelvic and hip pain , stress incontinence History of Current Condition 28 yo female appr 6 months from c- section delivery with stress incontinence symptoms and pelvic pain. The left side of her hip and anterior pelvis it started to get really painful and she fells like she has to put it back in place. She reports when she moves her hip to realign it she will notice leakage and when she coughs and sneezes she leaks. Her baby was 7# 12 oz She has been primarly walking for exercises and does stair master SHe has a history of chrons and Ulcerative colitis. She works in [employer] for the [employer]. She is primarily sitting. She does have some complaints of pelvic heaviness. Treatment Goals Patient/Caregiver Goals Treatment goals include reducing both pain and urinary incontinence Prior Functional Status Baseline Function- ADL's Independent Baseline Function- Mobility Independent Baseline Function- Other prior to [place] reports no symptoms of anterior hip pain or urinary incontinence PT-OP-C Subjective Start: 03/11/24 08:17 Freq: Status: Active Protocol: Document 03/25/24 09:54 [facility] (Rec: 03/25/24 10:35 [facility] [id number]) OP-PT Subjective Patient Comments Patient Comments pt notes she has been trying stretching by lowering her leg off the bed when she laughs she doesn't have control or coughing she doesn't have control. PT-OP-F Manual Assessment Start: 03/11/24 08:17 Freq: Status: Active Protocol: Document 03/11/24 09:45 [facility] (Rec: 06/19/24 12:35 [facility] [id number]) Manual Assessments Soft Tissue Assessment Soft Tissue Mobility Assessment left lateral wall of the levator ani guarded and tight iliopsoas tightness B but R > L + prabha test bilaterally Joint Mobility Assessment Joint Mobility Assessment post SI joint instability with + ASLR test PT-OP-I Pelvic Floor Start: 03/11/24 08:17 Freq: Status: Active Protocol: Document 03/11/24 09:45 [facility] (Rec: 03/12/24 12:35 [facility] [id number]) Pelvic Floor Assessment Urine Pelvic Floor Surgery No Urinary Symptoms Urge Sensation Other Urinary Symptoms nocturia x 2 leakage with exercise and with change of positions such as sit-stand Leakage Size Medium Leakage Cause Cough,Exercise,Lifting,Sneeze, Urge Leaks Per Day 2 Voiding Frequency 11-14 Nocturia 2 Urine Pad Type Panty Liner Pelvic Clock Pelvic Clock 3-6 Guarding,Tightness Contraction Ability Voluntary Contraction Weak Voluntary Relaxation Weak Manual Muscle Testing Left 2 Manual Muscle Testing Right 2 Manual Muscle Testing Anterior 2 Manual Muscle Testing Posterior 2 Muscle Endurance (Seconds) 5 PT-OP-J Posture/Palpation/Skin Start: 03/11/24 08:17 Freq: Status: Active Protocol: Document 03/11/24 09:45 [facility] (Rec: 03/12/24 12:35 [facility] [id number]) Posture Evaluation Comments Posture Comments [place] stands in a increased anterior pelvic tilt Palpation Assessment Location anterior left hip Palpation Findings Soft Tissue Tightness,Muscle Guarding,Tenderness Palpation Details tenderness at the femoral head onterirly on the left, symptoms increase with PROM and AROM hip flexion PT-OP-K Range of Motion Start: 03/12/24 12:35 Freq: Status: Active Protocol: Document 03/11/24 09:45 [facility] (Rec: 03/12/24 12:36 [facility] [id number]) Hip Goniometric Range of Motion Hip Left Hip ROM WFL No Testing Position Supine Flexion w/Knee Flexed 110 Comments anterior pinching pain at end range hip flexion of 110 on the left tightness in the iliopsoas limiting hip extension B in the prabha test position PT-OP-Q Treatments Start: 03/11/24 08:17 Freq: Status: Active Protocol: Document 03/25/24 09:54 [facility] (Rec: 03/25/24 10:35 [facility] [id number]) Therapeutic Exercises Supine Exercises hip flexor stretch in prabha test position Side bilateral Reps/Minutes hold 1-2 min pelvic floor long holds Reps/Minutes x 10 reps Comments 11.4 and max of 26 Other Exercises supine ball squeeze with pelvic floor contraction Reps/Minutes 10 reps Self-Care/Home Management Treatment Education Patient Education Body Mechanics,Home Exercise Program Other Education education on SI alignment techniques and body mechanics to keep pelvis stable PT-OP-T Assessment and Plan Start: 03/11/24 08:17 Freq: Status: Active Protocol: Document 03/25/24 16:23 [facility] (Rec: 03/25/24 16:27 [facility] [id number]) Physical Therapy Assessment Assessment Summary Assessment EMG biofeedback was initiated today for [place] and she would benefit from working on endurance holds of the pelvic floor. She is now able to rest to baseline on EMG biofeedback and is not experiencing the pain she was with intercourse. Ball squeeze was given today for SI stabilization and pt tolerated well Physical Therapy Plan Frequency and Duration Frequency of Treatment 1x/Week Duration of treatment (weeks) 12 Plan of Care Start Date 03/11/24 Plan of Care End Date 06/03/24 Therapeutic Interventions Therapeutic Interventions Home Exercise Program,Manual Therapy,Neuromuscular Re- education,Patient/Caregiver Education,Self-Care/Home Management,Soft Tissue Mobilization,Therapeutic Exercises Modalities Biofeedback Next Visit Focus/Plan Next Note Type Treatment Note Next Visit Plan Continue EMG biofeedback for endurance training of the pelvic floor, begin quick pelvic floor contractions next visit, begin TA stabilization next visit
--- NOTE | 2024-04-01 16:46 | PT.OTN ---
Current Diagnoses Stress incontinence (female) (male) (04/01/24) Encounter for routine follow-up (04/01/24) Physical Therapy Treatment Note PT-OP-A Visit Information Start: 03/11/24 08:17 Freq: Status: Active Protocol: Document 04/01/24 09:46 [facility] (Rec: 04/01/24 10:32 [facility] [id number]) Out-Patient Physical Therapy Visit Information Visit Information Visit Type Treatment Note Visit Start Time 09:50 Visit Stop Time 10:30 Visit Number 3 Evaluation Information Evaluation Date 03/11/24 PT-OP-B Current Condition Start: 03/11/24 08:17 Freq: Status: Active Protocol: Document 03/11/24 09:45 [facility] (Rec: 03/11/24 08:22 [facility] [id number]) Current Condition History of Current Condition Onset Date during her 3rd trimester of Current Complaints anterior L pelvic and hip pain , stress incontinence History of Current Condition 28 yo female appr 6 months from c- section delivery with stress incontinence symptoms and pelvic pain. The left side of her hip and anterior pelvis it started to get really painful and she fells like she has to put it back in place. She reports when she moves her hip to realign it she will notice leakage and when she coughs and sneezes she leaks. Her baby was 7# 12 oz She has been primarly walking for exercises and does stair master SHe has a history of chrons and Ulcerative colitis. She works in [employer] for the [employer]. She is primarily sitting. She does have some complaints of pelvic heaviness. Treatment Goals Patient/Caregiver Goals Treatment goals include reducing both pain and urinary incontinence Prior Functional Status Baseline Function- ADL's Independent Baseline Function- Mobility Independent Baseline Function- Other prior to [place] reports no symptoms of anterior hip pain or urinary incontinence PT-OP-C Subjective Start: 03/11/24 08:17 Freq: Status: Active Protocol: Document 04/01/24 09:46 [facility] (Rec: 04/01/24 10:32 [facility] [id number]) OP-PT Subjective Patient Comments Patient Comments the left sided SI pain is gone but she is feeling the right side she is voiding and then feels as if she has to void again soon afterwards She notes she is still feeling weak in her core Patient Reported Progress Same PT-OP-F Manual Assessment Start: 03/11/24 08:17 Freq: Status: Active Protocol: Document 03/11/24 09:45 [facility] (Rec: 03/12/24 12:35 [facility] [id number]) Manual Assessments Soft Tissue Assessment Soft Tissue Mobility Assessment left lateral wall of the levator ani guarded and tight iliopsoas tightness B but R > L + prabha test bilaterally Joint Mobility Assessment Joint Mobility Assessment post SI joint instability with + ASLR test PT-OP-I Pelvic Floor Start: 03/11/24 08:17 Freq: Status: Active Protocol: Document 03/11/24 09:45 [facility] (Rec: 03/12/24 12:35 [facility] [id number]) Pelvic Floor Assessment Urine Pelvic Floor Surgery No Urinary Symptoms Urge Sensation Other Urinary Symptoms nocturia x 2 leakage with exercise and with change of positions such as sit-stand Leakage Size Medium Leakage Cause Cough,Exercise,Lifting,Sneeze, Urge Leaks Per Day 2 Voiding Frequency 11-14 Nocturia 2 Urine Pad Type Panty Liner Pelvic Clock Pelvic Clock 3-6 Guarding,Tightness Contraction Ability Voluntary Contraction Weak Voluntary Relaxation Weak Manual Muscle Testing Left 2 Manual Muscle Testing Right 2 Manual Muscle Testing Anterior 2 Manual Muscle Testing Posterior 2 Muscle Endurance (Seconds) 5 PT-OP-J Posture/Palpation/Skin Start: 03/11/24 08:17 Freq: Status: Active Protocol: Document 03/11/24 09:45 [facility] (Rec: 03/12/24 12:35 [facility] [id number]) Posture Evaluation Comments Posture Comments [place] stands in a increased anterior pelvic tilt Palpation Assessment Location anterior left hip Palpation Findings Soft Tissue Tightness,Muscle Guarding,Tenderness Palpation Details tenderness at the femoral head onterirly on the left, symptoms increase with PROM and AROM hip flexion PT-OP-K Range of Motion Start: 03/12/24 12:35 Freq: Status: Active Protocol: Document 03/11/24 09:45 [facility] (Rec: 03/12/24 12:36 [facility] [id number]) Hip Goniometric Range of Motion Hip Left Hip ROM WFL No Testing Position Supine Flexion w/Knee Flexed 110 Comments anterior pinching pain at end range hip flexion of 110 on the left tightness in the iliopsoas limiting hip extension B in the prabha test position PT-OP-Q Treatments Start: 03/11/24 08:17 Freq: Status: Active Protocol: Document 04/01/24 09:46 [facility] (Rec: 04/01/24 10:32 [facility] [id number]) Therapeutic Exercises Supine Exercises templates for coordination and eccentric control Reps/Minutes x 5 min ball squeeze with pelvic floor Reps/Minutes x 10 reps pelvic floor long holds Reps/Minutes x 10 reps Comments average of 16 and max 29 single knee to chest Reps/Minutes hold 1-2 min Other Exercises romeo pose Reps/Minutes hold 1-2 min cat cow Reps/Minutes x 10 reps quadruped TA Reps/Minutes x 10 reps Manual Therapy Treatment Manual Techniques manual right hip distraction Type manual hip distraction Body Location right hip Body Position Hooklying Reps/Duration sustained holds x 3 at 20 seconds Comments worked with right hip flexed and relaxed as I gave support and performed manual hip distraction, [place] tolerated this well. PT-OP-T Assessment and Plan Start: 03/11/24 08:17 Freq: Status: Active Protocol: Document 04/01/24 09:46 [facility] (Rec: 04/01/24 10:32 [facility] [id number]) Physical Therapy Assessment Assessment Summary Assessment leg length was equal today and [place] is feeling more anterior hip pain on the right side vs the SI joint. I did try some hip distraction with a flexed hip on the right and she tolerated this well. I added in qudruped TA as well as cat cow and chids pose. She is guarded and tight in her paraspinals. With EMG biofeedback she did better today with pelvic floor endurance training. Her hold time as well as her average and max contraction shows improvement. Physical Therapy Plan Frequency and Duration Frequency of Treatment 1x/Week Duration of treatment (weeks) 12 Plan of Care Start Date 03/11/24 Plan of Care End Date 06/03/24 Therapeutic Interventions Therapeutic Interventions Home Exercise Program,Manual Therapy,Neuromuscular Re- education,Patient/Caregiver Education,Self-Care/Home Management,Soft Tissue Mobilization,Therapeutic Exercises Modalities Biofeedback Next Visit Focus/Plan Next Note Type Treatment Note Next Visit Plan Begin working on Supine bridge with ball squeeze and TA with marches next visit, continue with pelvic floor strengthening
--- NOTE | 2024-04-09 12:56 | PT.OTN ---
Current Diagnoses Stress incontinence (female) (male) (04/09/24) Encounter for routine follow-up (04/09/24) Physical Therapy Treatment Note PT-OP-A Visit Information Start: 03/11/24 08:17 Freq: Status: Active Protocol: Document 04/09/24 09:01 [facility] (Rec: 04/09/24 09:45 [facility] [id number]) Out-Patient Physical Therapy Visit Information Visit Information Visit Type Treatment Note Visit Start Time 09:00 Visit Stop Time 09:45 Visit Number 4 PT-OP-B Current Condition Start: 03/11/24 08:17 Freq: Status: Active Protocol: Document 03/11/24 09:45 [facility] (Rec: 03/11/24 08:22 [facility] [id number]) Current Condition History of Current Condition Onset Date during her 3rd trimester of Current Complaints anterior L pelvic and hip pain , stress incontinence History of Current Condition 28 yo female appr 6 months from c- section delivery with stress incontinence symptoms and pelvic pain. The left side of her hip and anterior pelvis it started to get really painful and she fells like she has to put it back in place. She reports when she moves her hip to realign it she will notice leakage and when she coughs and sneezes she leaks. Her baby was 7# 12 oz She has been primarly walking for exercises and does stair master SHe has a history of chrons and Ulcerative colitis. She works in [employer] for the [employer]. She is primarily sitting. She does have some complaints of pelvic heaviness. Treatment Goals Patient/Caregiver Goals Treatment goals include reducing both pain and urinary incontinence Prior Functional Status Baseline Function- ADL's Independent Baseline Function- Mobility Independent Baseline Function- Other prior to [place] reports no symptoms of anterior hip pain or urinary incontinence PT-OP-C Subjective Start: 03/11/24 08:17 Freq: Status: Active Protocol: Document 04/09/24 09:01 [facility] (Rec: 04/09/24 09:45 [facility] [id number]) OP-PT Subjective Patient Comments Patient Comments for the last 2 days has heard popping still feeling that she has residual urine but there have been days she feels she can empty all the way. PT-OP-F Manual Assessment Start: 03/11/24 08:17 Freq: Status: Active Protocol: Document 03/11/24 09:45 [facility] (Rec: 03/12/24 12:35 [facility] [id number]) Manual Assessments Soft Tissue Assessment Soft Tissue Mobility Assessment left lateral wall of the levator ani guarded and tight iliopsoas tightness B but R > L + prabha test bilaterally Joint Mobility Assessment Joint Mobility Assessment post SI joint instability with + ASLR test PT-OP-I Pelvic Floor Start: 03/11/24 08:17 Freq: Status: Active Protocol: Document 03/11/24 09:45 [facility] (Rec: 03/12/24 12:35 [facility] [id number]) Pelvic Floor Assessment Urine Pelvic Floor Surgery No Urinary Symptoms Urge Sensation Other Urinary Symptoms nocturia x 2 leakage with exercise and with change of positions such as sit-stand Leakage Size Medium Leakage Cause Cough,Exercise,Lifting,Sneeze, Urge Leaks Per Day 2 Voiding Frequency 11-14 Nocturia 2 Urine Pad Type Panty Liner Pelvic Clock Pelvic Clock 3-6 Guarding,Tightness Contraction Ability Voluntary Contraction Weak Voluntary Relaxation Weak Manual Muscle Testing Left 2 Manual Muscle Testing Right 2 Manual Muscle Testing Anterior 2 Manual Muscle Testing Posterior 2 Muscle Endurance (Seconds) 5 PT-OP-J Posture/Palpation/Skin Start: 03/11/24 08:17 Freq: Status: Active Protocol: Document 03/11/24 09:45 [facility] (Rec: 03/12/24 12:35 [facility] [id number]) Posture Evaluation Comments Posture Comments [place] stands in a increased anterior pelvic tilt Palpation Assessment Location anterior left hip Palpation Findings Soft Tissue Tightness,Muscle Guarding,Tenderness Palpation Details tenderness at the femoral head onterirly on the left, symptoms increase with PROM and AROM hip flexion PT-OP-K Range of Motion Start: 03/12/24 12:35 Freq: Status: Active Protocol: Document 03/11/24 09:45 [facility] (Rec: 03/12/24 12:36 [facility] [id number]) Hip Goniometric Range of Motion Hip Left Hip ROM WFL No Testing Position Supine Flexion w/Knee Flexed 110 Comments anterior pinching pain at end range hip flexion of 110 on the left tightness in the iliopsoas limiting hip extension B in the prabha test position PT-OP-Q Treatments Start: 03/11/24 08:17 Freq: Status: Active Protocol: Document 04/09/24 09:01 [facility] (Rec: 04/09/24 09:45 [facility] [id number]) Therapeutic Exercises Supine Exercises TA with march Reps/Minutes x 20 reps hip roll outs with theraband Reps/Minutes 20 reps ball squeeze with pelvic floor Reps/Minutes x 10 reps single knee to chest Reps/Minutes hold 1-2 min Other Exercises romeo pose Reps/Minutes hold 1-2 min cat cow Reps/Minutes x 10 reps quadruped TA Reps/Minutes x 10 reps supine ball squeeze with pelvic floor contraction Reps/Minutes 10 reps rock backs Reps/Minutes 10 reps cues to hinge at the hips 1/2 kneeling hip flexor stretch Reps/Minutes hold 30 sec x 2 B Manual Therapy Treatment Manual Techniques MET for left anterior inonnimnat rotation Reps/Duration x 5 reps Comments good tolerance manual right hip distraction Type manual hip distraction Body Location left hip Body Position Hooklying Reps/Duration sustained holds x 3 at 20 seconds Comments worked with right hip flexed and relaxed as I gave support and performed manual hip distraction, [place] tolerated this well. PT-OP-T Assessment and Plan Start: 03/11/24 08:17 Freq: Status: Active Protocol: Document 04/09/24 12:50 [facility] (Rec: 04/09/24 12:55 [facility] [id number]) Physical Therapy Assessment Assessment Summary Assessment Time was spent on core stabilization and progressing stabilization exercises, added in segmental bridge with hip abduction with theraband. LEft side of the paraspinals are tight and guarded and I added in lateral sidebend with romeo pose stretch. No EMG biofeedback today as [place]a forgot her sensor. Physical Therapy Plan Frequency and Duration Frequency of Treatment 1x/Week Duration of treatment (weeks) 12 Plan of Care Start Date 03/11/24 Plan of Care End Date 06/03/24 Therapeutic Interventions Therapeutic Interventions Home Exercise Program,Manual Therapy,Neuromuscular Re- education,Patient/Caregiver Education,Self-Care/Home Management,Soft Tissue Mobilization,Therapeutic Exercises Modalities Biofeedback Next Visit Focus/Plan Next Note Type Treatment Note Next Visit Plan Continue progressing stabilzation exercises as pt can tolerate
--- NOTE | 2024-04-22 16:21 | PT.OTN ---
Current Diagnoses Stress incontinence (female) (male) (04/22/24) Encounter for routine follow-up (04/22/24) Physical Therapy Treatment Note PT-OP-A Visit Information Start: 03/11/24 08:17 Freq: Status: Active Protocol: Document 04/22/24 16:21 [facility] (Rec: 04/22/24 16:21 [facility] [id number]) Out-Patient Physical Therapy Visit Information Visit Information Visit Type Treatment Note Visit Start Time 15:15 Visit Stop Time 16:00 Visit Number 5 PT-OP-B Current Condition Start: 03/11/24 08:17 Freq: Status: Active Protocol: Document 03/11/24 09:45 [facility] (Rec: 03/11/24 08:22 [facility] [id number]) Current Condition History of Current Condition Onset Date during her 3rd trimester of Current Complaints anterior L pelvic and hip pain , stress incontinence History of Current Condition 28 yo female appr 6 months from c- section delivery with stress incontinence symptoms and pelvic pain. The left side of her hip and anterior pelvis it started to get really painful and she fells like she has to put it back in place. She reports when she moves her hip to realign it she will notice leakage and when she coughs and sneezes she leaks. Her baby was 7# 12 oz She has been primarly walking for exercises and does stair master SHe has a history of chrons and Ulcerative colitis. She works in [employer] for the [employer]. She is primarily sitting. She does have some complaints of pelvic heaviness. Treatment Goals Patient/Caregiver Goals Treatment goals include reducing both pain and urinary incontinence Prior Functional Status Baseline Function- ADL's Independent Baseline Function- Mobility Independent Baseline Function- Other prior to [place] reports no symptoms of anterior hip pain or urinary incontinence PT-OP-C Subjective Start: 03/11/24 08:17 Freq: Status: Active Protocol: Document 04/22/24 15:22 [facility] (Rec: 04/22/24 16:18 [facility] [id number]) OP-PT Subjective Patient Comments Patient Comments pt notes she is still feeling sore on the left side with her anterior hip leakage is not bad at this point PT-OP-F Manual Assessment Start: 03/11/24 08:17 Freq: Status: Active Protocol: Document 03/11/24 09:45 [facility] (Rec: 03/12/24 12:35 [facility] [id number]) Manual Assessments Soft Tissue Assessment Soft Tissue Mobility Assessment left lateral wall of the levator ani guarded and tight iliopsoas tightness B but R > L + prabha test bilaterally Joint Mobility Assessment Joint Mobility Assessment post SI joint instability with + ASLR test PT-OP-I Pelvic Floor Start: 03/11/24 08:17 Freq: Status: Active Protocol: Document 03/11/24 09:45 [facility] (Rec: 03/12/24 12:35 [facility] [id number]) Pelvic Floor Assessment Urine Pelvic Floor Surgery No Urinary Symptoms Urge Sensation Other Urinary Symptoms nocturia x 2 leakage with exercise and with change of positions such as sit-stand Leakage Size Medium Leakage Cause Cough,Exercise,Lifting,Sneeze, Urge Leaks Per Day 2 Voiding Frequency 11-14 Nocturia 2 Urine Pad Type Panty Liner Pelvic Clock Pelvic Clock 3-6 Guarding,Tightness Contraction Ability Voluntary Contraction Weak Voluntary Relaxation Weak Manual Muscle Testing Left 2 Manual Muscle Testing Right 2 Manual Muscle Testing Anterior 2 Manual Muscle Testing Posterior 2 Muscle Endurance (Seconds) 5 PT-OP-J Posture/Palpation/Skin Start: 03/11/24 08:17 Freq: Status: Active Protocol: Document 03/11/24 09:45 [facility] (Rec: 03/12/24 12:35 [facility] [id number]) Posture Evaluation Comments Posture Comments [place] stands in a increased anterior pelvic tilt Palpation Assessment Location anterior left hip Palpation Findings Soft Tissue Tightness,Muscle Guarding,Tenderness Palpation Details tenderness at the femoral head onterirly on the left, symptoms increase with PROM and AROM hip flexion PT-OP-K Range of Motion Start: 03/12/24 12:35 Freq: Status: Active Protocol: Document 03/11/24 09:45 [facility] (Rec: 03/12/24 12:36 [facility] [id number]) Hip Goniometric Range of Motion Hip Left Hip ROM WFL No Testing Position Supine Flexion w/Knee Flexed 110 Comments anterior pinching pain at end range hip flexion of 110 on the left tightness in the iliopsoas limiting hip extension B in the prabha test position PT-OP-Q Treatments Start: 03/11/24 08:17 Freq: Status: Active Protocol: Document 04/22/24 15:22 [facility] (Rec: 04/22/24 16:18 [facility] [id number]) Therapeutic Exercises Supine Exercises piriformis stretch Reps/Minutes hold 1-2 min ball squeeze with pelvic floor Reps/Minutes x 10 reps hip flexor stretch in prabha test position Supine Exercise Name right side tighter than the left Side bilateral Reps/Minutes hold 1-2 min Other Exercises rock backs Other Exercise Name added in manual distraction with mobilization belt while pt is hip hinging Reps/Minutes 10 reps cues to hinge at the hips Comments pt given theraband for home self mobilizations in this position Manual Therapy Treatment Manual Techniques MET for right anterior innominant Type MET Body Position Hooklying Reps/Duration 5 Comments good tolerance manual left hip distraction Body Location left anterior hip Body Position supine with hip flexed Reps/Duration x 4 reps Comments mobilization belt used forhip distraction Self-Care/Home Management Treatment Education Patient Education Body Mechanics,Home Exercise Program Other Education pt was shown a SI belt as it may be helpful for her for home use, she was also shown body mechanics for not letting the left hip push forward with standing PT-OP-T Assessment and Plan Start: 03/11/24 08:17 Freq: Status: Active Protocol: Document 04/22/24 15:22 [facility] (Rec: 04/22/24 16:18 [facility] [id number]) Physical Therapy Assessment Goals 4 Impairment Decreased pelvic floor strength and endurance Short Term Goal (STG) [place] is able to sustain a pelvic floor contraction x 10 seconds in supine STG Duration 4 weeks [facility] Goal (LTG) [place] is able to sustain a pelvic floor contraction in standing x 5 seconds LTG Duration 12 weeks 3 Impairment Urinary stress incontinence occuring approx 2 times per day with post pelvic floor weakness Short Term Goal (STG) [place] is educated on a home program for pelvic floor strengtheing STG Duration 4 weeks [facility] Goal (LTG) [place] reports a overall reduction of urinary incontinence LTG Duration 12 weeks 2 Impairment Iliopsoas tightness B contributing to a anterior pelvic tilt and hip impingement symptoms Short Term Goal (STG) [place] is educated in iliopsoas stretches and neutral pelvic alignment STG Duration 4 weeks [facility] Goal (LTG) [place] presents with improved length of the iliopsoas B and is able to sprinkler fitter helper a neutral pelvic position LTG Duration 12 weeks 1 Impairment Anterior hip and pelvic pain rated 3/10 that developed during [facility] Goal (LTG) [place] reports a overall reduction of pain in the anterior hip to 0-1/10 LTG Duration 12 weeks Assessment Summary Assessment [place]a is no longer experiencing the urinary leakage, she is feeling left sided anterior hip pain still. It is popping with AROM of the left hip. I did discuss using a SI belt to help stabilize. I also worked on seating the femoral head today and used a mobilization belt to provide hip distraction. [place]a was shown rock back with a theraband help by her to also provide some distraction to her hip. She tolerated this well. Physical Therapy Plan Frequency and Duration Frequency of Treatment 1x/Week Duration of treatment (weeks) 12 Plan of Care Start Date 03/11/24 Plan of Care End Date 06/03/24 Therapeutic Interventions Therapeutic Interventions Home Exercise Program,Manual Therapy,Neuromuscular Re- education,Patient/Caregiver Education,Self-Care/Home Management,Soft Tissue Mobilization,Therapeutic Exercises Modalities Biofeedback Next Visit Focus/Plan Next Note Type Treatment Note Next Visit Plan check in with how [place] did with her HEP and how her hip felt after treatment today
--- NOTE | 2024-06-24 17:16 | PT.OTN ---
Current Diagnoses Stress incontinence (female) (male) (06/24/24) Encounter for routine follow-up (06/24/24) Physical Therapy Treatment Note PT-OP-A Visit Information Start: 03/11/24 08:17 Freq: Status: Active Protocol: Document 06/24/24 09:00 [facility] (Rec: 06/24/24 17:14 [facility] [id number]) Out-Patient Physical Therapy Visit Information Visit Information Visit Type Treatment Note Visit Start Time 09:00 Visit Stop Time 09:45 Visit Number 6 PT-OP-B Current Condition Start: 03/11/24 08:17 Freq: Status: Active Protocol: Document 03/11/24 09:45 [facility] (Rec: 03/11/24 08:22 [facility] [id number]) Current Condition History of Current Condition Onset Date during her 3rd trimester of Current Complaints anterior L pelvic and hip pain , stress incontinence History of Current Condition 28 yo female appr 6 months from c- section delivery with stress incontinence symptoms and pelvic pain. The left side of her hip and anterior pelvis it started to get really painful and she fells like she has to put it back in place. She reports when she moves her hip to realign it she will notice leakage and when she coughs and sneezes she leaks. Her baby was 7# 12 oz She has been primarly walking for exercises and does stair master SHe has a history of chrons and Ulcerative colitis. She works in [employer] for the [employer]. She is primarily sitting. She does have some complaints of pelvic heaviness. Treatment Goals Patient/Caregiver Goals Treatment goals include reducing both pain and urinary incontinence Prior Functional Status Baseline Function- ADL's Independent Baseline Function- Mobility Independent Baseline Function- Other prior to [place] reports no symptoms of anterior hip pain or urinary incontinence PT-OP-C Subjective Start: 03/11/24 08:17 Freq: Status: Active Protocol: Document 06/24/24 09:04 [facility] (Rec: 06/24/24 09:48 [facility] [id number]) OP-PT Subjective Patient Comments Patient Comments pt notes her her pelvic floor feels heavy when she voids, its hard holding for more than 5 seconds, she has been tryng to work on her transverse abdominal muscles PT-OP-F Manual Assessment Start: 03/11/24 08:17 Freq: Status: Active Protocol: Document 03/11/24 09:45 [facility] (Rec: 06/19/24 12:35 [facility] [id number]) Manual Assessments Soft Tissue Assessment Soft Tissue Mobility Assessment left lateral wall of the levator ani guarded and tight iliopsoas tightness B but R > L + prabha test bilaterally Joint Mobility Assessment Joint Mobility Assessment post SI joint instability with + ASLR test PT-OP-I Pelvic Floor Start: 03/11/24 08:17 Freq: Status: Active Protocol: Document 03/11/24 09:45 [facility] (Rec: 03/12/24 12:35 [facility] [id number]) Pelvic Floor Assessment Urine Pelvic Floor Surgery No Urinary Symptoms Urge Sensation Other Urinary Symptoms nocturia x 2 leakage with exercise and with change of positions such as sit-stand Leakage Size Medium Leakage Cause Cough,Exercise,Lifting,Sneeze, Urge Leaks Per Day 2 Voiding Frequency 11-14 Nocturia 2 Urine Pad Type Panty Liner Pelvic Clock Pelvic Clock 3-6 Guarding,Tightness Contraction Ability Voluntary Contraction Weak Voluntary Relaxation Weak Manual Muscle Testing Left 2 Manual Muscle Testing Right 2 Manual Muscle Testing Anterior 2 Manual Muscle Testing Posterior 2 Muscle Endurance (Seconds) 5 PT-OP-J Posture/Palpation/Skin Start: 03/11/24 08:17 Freq: Status: Active Protocol: Document 03/11/24 09:45 [facility] (Rec: 03/12/24 12:35 [facility] [id number]) Posture Evaluation Comments Posture Comments [place] stands in a increased anterior pelvic tilt Palpation Assessment Location anterior left hip Palpation Findings Soft Tissue Tightness,Muscle Guarding,Tenderness Palpation Details tenderness at the femoral head onterirly on the left, symptoms increase with PROM and AROM hip flexion PT-OP-K Range of Motion Start: 03/12/24 12:35 Freq: Status: Active Protocol: Document 03/11/24 09:45 [facility] (Rec: 03/12/24 12:36 [facility] [id number]) Hip Goniometric Range of Motion Hip Left Hip ROM WFL No Testing Position Supine Flexion w/Knee Flexed 110 Comments anterior pinching pain at end range hip flexion of 110 on the left tightness in the iliopsoas limiting hip extension B in the prabha test position PT-OP-Q Treatments Start: 03/11/24 08:17 Freq: Status: Active Protocol: Document 06/24/24 09:04 [facility] (Rec: 06/24/24 09:48 [facility] [id number]) Therapeutic Exercises Supine Exercises piriformis stretch Reps/Minutes hold 1-2 min TA with march Reps/Minutes x 20 reps ball squeeze with pelvic floor Reps/Minutes x 10 reps hip flexor stretch in prabha test position Supine Exercise Name right side tighter than the left Side bilateral Reps/Minutes hold 1-2 min single knee to chest Reps/Minutes hold 1-2 min Other Exercises quadruped opp arm and then opplegs Reps/Minutes x 10 each romeo pose Reps/Minutes hold 1-2 min cat cow Reps/Minutes x 10 reps quadruped TA Reps/Minutes x 10 reps supine ball squeeze with pelvic floor contraction Reps/Minutes 10 reps rock backs Other Exercise Name added in manual distraction with mobilization belt while pt is hip hinging Reps/Minutes 10 reps cues to hinge at the hips Comments pt given theraband for home self mobilizations in this position PT-OP-T Assessment and Plan Start: 03/11/24 08:17 Freq: Status: Active Protocol: Document 06/24/24 09:00 [facility] (Rec: 06/24/24 17:14 [facility] [id number]) Physical Therapy Assessment Goals 4 Impairment Decreased pelvic floor strength and endurance Short Term Goal (STG) [place] is able to sustain a pelvic floor contraction x 10 seconds in supine excellent progress STG Duration 4 weeks Plating Tank Operator Apprentice Goal (LTG) [place] is able to sustain a pelvic floor contraction in standing x 5 seconds goal not yet met LTG Duration 12 weeks 3 Impairment Urinary stress incontinence occuring approx 2 times per day with post pelvic floor weakness Short Term Goal (STG) [place] is educated on a home program for pelvic floor strengtheing goal met STG Duration 4 weeks [facility] Goal (LTG) [place] reports a overall reduction of urinary incontinence goal met LTG Duration 12 weeks 2 Impairment Iliopsoas tightness B contributing to a anterior pelvic tilt and hip impingement symptoms Short Term Goal (STG) [place] is educated in iliopsoas stretches and neutral pelvic alignment STG Duration 4 weeks [facility] Goal (LTG) [place] presents with improved length of the iliopsoas B and is able to cushion spring assembler a neutral pelvic position good progress LTG Duration 12 weeks 1 Impairment Anterior hip and pelvic pain rated 3/10 that developed during [facility] Goal (LTG) [place] reports a overall reduction of pain in the anterior hip to 0-1/10 LTG Duration 12 weeks Assessment Summary Assessment It has been a couple of months since I have seen [place]. She is doing better, still tight in the anterior hip but pain has decreased. She is showing good progress with improved core strength. She would benefit Physical Therapy Plan Frequency and Duration Frequency of Treatment 1x/Week Duration of treatment (weeks) 12 Plan of Care Start Date 06/24/24 Plan of Care End Date 09/16/24 Therapeutic Interventions Therapeutic Interventions Home Exercise Program,Manual Therapy,Neuromuscular Re- education,Patient/Caregiver Education,Self-Care/Home Management,Soft Tissue Mobilization,Therapeutic Exercises Modalities Biofeedback Next Visit Focus/Plan Next Note Type Treatment Note Next Visit Plan Continue progressing stabilization exercises as pt can tolerate
--- NOTE | 2024-06-24 17:17 | PT.OPPOC ---
Physical, Occupational & Speech Therapy At [facility] Current Diagnoses Stress incontinence (female) (male) (06/24/24) Encounter for routine follow-up (06/24/24) Visit Care Team Role Provider Type Lulu White MD Primary Care Provider Physician Specialty: Gynecology DRYING ROOM SUPERVISOR Obstetrics Address: [address] [place] [address], [id number] Email: [email or web address] Marilu Mock MD, PHD Family Provider Non-Staff Specialty: Internal Medicine Address: [address] [place] [address], [id number] Email: Lv Barker DO Attending Provider Non-Staff Referring Provider Specialty: Family Practice Address: [address] [place] [address], [id number] Email: Plan Of Care PT-OP-B Current Condition Start: 03/11/24 08:17 Freq: Status: Active Protocol: Document 03/11/24 09:45 [facility] (Rec: 03/11/24 08:22 [facility] [id number]) Current Condition History of Current Condition Onset Date during her 3rd trimester of Current Complaints anterior L pelvic and hip pain , stress incontinence History of Current Condition 28 yo female appr 6 months from c- section delivery with stress incontinence symptoms and pelvic pain. The left side of her hip and anterior pelvis it started to get really painful and she fells like she has to put it back in place. She reports when she moves her hip to realign it she will notice leakage and when she coughs and sneezes she leaks. Her baby was 7# 12 oz She has been primarly walking for exercises and does stair master SHe has a history of chrons and Ulcerative colitis. She works in [employer] for the [employer]. She is primarily sitting. She does have some complaints of pelvic heaviness. Treatment Goals Patient/Caregiver Goals Treatment goals include reducing both pain and urinary incontinence Prior Functional Status Baseline Function- ADL's Independent Baseline Function- Mobility Independent Baseline Function- Other prior to [place] reports no symptoms of anterior hip pain or urinary incontinence PT-OP-T Assessment and Plan Start: 03/11/24 08:17 Freq: Status: Active Protocol: Document 06/24/24 09:00 [facility] (Rec: 06/24/24 17:14 [facility] [id number]) Physical Therapy Assessment Goals 4 Impairment Decreased pelvic floor strength and endurance Short Term Goal (STG) [place] is able to sustain a pelvic floor contraction x 10 seconds in supine excellent progress STG Duration 4 weeks Nursing Home Goal (LTG) [place] is able to sustain a pelvic floor contraction in standing x 5 seconds goal not yet met LTG Duration 12 weeks 3 Impairment Urinary stress incontinence occuring approx 2 times per day with post pelvic floor weakness Short Term Goal (STG) [place] is educated on a home program for pelvic floor strengtheing goal met STG Duration 4 weeks Motion Designer Goal (LTG) [place] reports a overall reduction of urinary incontinence goal met LTG Duration 12 weeks 2 Impairment Iliopsoas tightness B contributing to a anterior pelvic tilt and hip impingement symptoms Short Term Goal (STG) [place] is educated in iliopsoas stretches and neutral pelvic alignment STG Duration 4 weeks Nursing Home Goal (LTG) [place] presents with improved length of the iliopsoas B and is able to fpga design engineer a neutral pelvic position good progress LTG Duration 12 weeks 1 Impairment Anterior hip and pelvic pain rated 3/10 that developed during Motion Designer Goal (LTG) [place] reports a overall reduction of pain in the anterior hip to 0-1/10 LTG Duration 12 weeks Assessment Summary Assessment It has been a couple of months since I have seen [place]. She is doing better, still tight in the anterior hip but pain has decreased. She is showing good progress with improved core strength. She would benefit Physical Therapy Plan Frequency and Duration Frequency of Treatment 1x/Week Duration of treatment (weeks) 12 Plan of Care Start Date 06/24/24 Plan of Care End Date 09/16/24 Therapeutic Interventions Therapeutic Interventions Home Exercise Program,Manual Therapy,Neuromuscular Re- education,Patient/Caregiver Education,Self-Care/Home Management,Soft Tissue Mobilization,Therapeutic Exercises Modalities Biofeedback Next Visit Focus/Plan Next Note Type Treatment Note Next Visit Plan Continue progressing stabilization exercises as pt can tolerate Plan of Care Dates Plan of Care Start Date 06/24/24 Plan of Care End Date 09/16/24 Electronically Signed by: Cassy Ramirez, PT 06/24/24 1622 If you are in agreement with this Plan of Care, please return a signed and dated copy. I have reviewed this Plan of Care and certify that the skilled therapy services above are required to meet the patient?s needs. Physician Signature Date Printed Name and Credentials Clinical Instructor Signature Printed Name and Credentials
--- NOTE | 2024-06-24 17:18 | PT.OPPN ---
Current Diagnoses Stress incontinence (female) (male) (06/24/24) Encounter for routine follow-up (06/24/24) Physical Therapy Progress Note PT-OP-A Visit Information Start: 03/11/24 08:17 Freq: Status: Active Protocol: Document 06/24/24 09:00 [facility] (Rec: 06/24/24 17:14 [facility] [id number]) Out-Patient Physical Therapy Visit Information Visit Information Visit Type Treatment Note Visit Start Time 09:00 Visit Stop Time 09:45 Visit Number 6 PT-OP-B Current Condition Start: 03/11/24 08:17 Freq: Status: Active Protocol: Document 03/11/24 09:45 [facility] (Rec: 03/11/24 08:22 [facility] [id number]) Current Condition History of Current Condition Onset Date during her 3rd trimester of Current Complaints anterior L pelvic and hip pain , stress incontinence History of Current Condition 28 yo female appr 6 months from c- section delivery with stress incontinence symptoms and pelvic pain. The left side of her hip and anterior pelvis it started to get really painful and she fells like she has to put it back in place. She reports when she moves her hip to realign it she will notice leakage and when she coughs and sneezes she leaks. Her baby was 7# 12 oz She has been primarly walking for exercises and does stair master SHe has a history of chrons and Ulcerative colitis. She works in [employer] for the [employer]. She is primarily sitting. She does have some complaints of pelvic heaviness. Treatment Goals Patient/Caregiver Goals Treatment goals include reducing both pain and urinary incontinence Prior Functional Status Baseline Function- ADL's Independent Baseline Function- Mobility Independent Baseline Function- Other prior to [place] reports no symptoms of anterior hip pain or urinary incontinence PT-OP-C Subjective Start: 03/11/24 08:17 Freq: Status: Active Protocol: Document 06/24/24 09:04 [facility] (Rec: 06/24/24 09:48 [facility] [id number]) OP-PT Subjective Patient Comments Patient Comments pt notes her her pelvic floor feels heavy when she voids, its hard holding for more than 5 seconds, she has been tryng to work on her transverse abdominal muscles PT-OP-F Manual Assessment Start: 03/11/24 08:17 Freq: Status: Active Protocol: Document 03/11/24 09:45 [facility] (Rec: 06/19/24 12:35 [facility] [id number]) Manual Assessments Soft Tissue Assessment Soft Tissue Mobility Assessment left lateral wall of the levator ani guarded and tight iliopsoas tightness B but R > L + prabha test bilaterally Joint Mobility Assessment Joint Mobility Assessment post SI joint instability with + ASLR test PT-OP-I Pelvic Floor Start: 03/11/24 08:17 Freq: Status: Active Protocol: Document 03/11/24 09:45 [facility] (Rec: 03/12/24 12:35 [facility] [id number]) Pelvic Floor Assessment Urine Pelvic Floor Surgery No Urinary Symptoms Urge Sensation Other Urinary Symptoms nocturia x 2 leakage with exercise and with change of positions such as sit-stand Leakage Size Medium Leakage Cause Cough,Exercise,Lifting,Sneeze, Urge Leaks Per Day 2 Voiding Frequency 11-14 Nocturia 2 Urine Pad Type Panty Liner Pelvic Clock Pelvic Clock 3-6 Guarding,Tightness Contraction Ability Voluntary Contraction Weak Voluntary Relaxation Weak Manual Muscle Testing Left 2 Manual Muscle Testing Right 2 Manual Muscle Testing Anterior 2 Manual Muscle Testing Posterior 2 Muscle Endurance (Seconds) 5 PT-OP-J Posture/Palpation/Skin Start: 03/11/24 08:17 Freq: Status: Active Protocol: Document 03/11/24 09:45 [facility] (Rec: 03/12/24 12:35 [facility] [id number]) Posture Evaluation Comments Posture Comments [place] stands in a increased anterior pelvic tilt Palpation Assessment Location anterior left hip Palpation Findings Soft Tissue Tightness,Muscle Guarding,Tenderness Palpation Details tenderness at the femoral head onterirly on the left, symptoms increase with PROM and AROM hip flexion PT-OP-K Range of Motion Start: 03/12/24 12:35 Freq: Status: Active Protocol: Document 03/11/24 09:45 [facility] (Rec: 03/12/24 12:36 [facility] [id number]) Hip Goniometric Range of Motion Hip Measured in Degrees Left Hip ROM WFL No Testing Position Supine Flexion w/Knee Flexed 110 Comments anterior pinching pain at end range hip flexion of 110 on the left tightness in the iliopsoas limiting hip extension B in the prabha test position PT-OP-T Assessment and Plan Start: 03/11/24 08:17 Freq: Status: Active Protocol: Document 06/24/24 09:00 [facility] (Rec: 06/24/24 17:14 [facility] [id number]) Physical Therapy Assessment Goals 4 Impairment Decreased pelvic floor strength and endurance Short Term Goal (STG) [place] is able to sustain a pelvic floor contraction x 10 seconds in supine excellent progress STG Duration 4 weeks Appraiser Auditor Goal (LTG) [place] is able to sustain a pelvic floor contraction in standing x 5 seconds goal not yet met LTG Duration 12 weeks 3 Impairment Urinary stress incontinence occuring approx 2 times per day with post pelvic floor weakness Short Term Goal (STG) [place] is educated on a home program for pelvic floor strengtheing goal met STG Duration 4 weeks Appraiser Auditor Goal (LTG) [place] reports a overall reduction of urinary incontinence goal met LTG Duration 12 weeks 2 Impairment Iliopsoas tightness B contributing to a anterior pelvic tilt and hip impingement symptoms Short Term Goal (STG) [place] is educated in iliopsoas stretches and neutral pelvic alignment STG Duration 4 weeks Appraiser Auditor Goal (LTG) [place] presents with improved length of the iliopsoas B and is able to semi automatic sewing machine operator a neutral pelvic position good progress LTG Duration 12 weeks 1 Impairment Anterior hip and pelvic pain rated 3/10 that developed during [facility] Goal (LTG) [place] reports a overall reduction of pain in the anterior hip to 0-1/10 LTG Duration 12 weeks Assessment Summary Assessment It has been a couple of months since I have seen [place]. She is doing better, still tight in the anterior hip but pain has decreased. She is showing good progress with improved core strength. She would benefit Physical Therapy Plan Frequency and Duration Frequency of Treatment 1x/Week Duration of treatment (weeks) 12 Plan of Care Start Date 06/24/24 Plan of Care End Date 09/16/24 Therapeutic Interventions Therapeutic Interventions Home Exercise Program,Manual Therapy,Neuromuscular Re- education,Patient/Caregiver Education,Self-Care/Home Management,Soft Tissue Mobilization,Therapeutic Exercises Modalities Biofeedback Next Visit Focus/Plan Next Note Type Treatment Note Next Visit Plan Continue progressing stabilization exercises as pt can tolerate
--- NOTE | 2024-07-01 13:14 | PT.OTN ---
Current Diagnoses Stress incontinence (female) (male) (07/01/24) Encounter for routine follow-up (07/01/24) Physical Therapy Treatment Note PT-OP-A Visit Information Start: 03/11/24 08:17 Freq: Status: Active Protocol: Document 07/01/24 09:16 [facility] (Rec: 07/01/24 09:44 [facility] [id number]) Out-Patient Physical Therapy Visit Information Visit Information Visit Type Treatment Note Visit Start Time 09:15 Visit Stop Time 09:45 Visit Number 7 PT-OP-B Current Condition Start: 03/11/24 08:17 Freq: Status: Active Protocol: Document 03/11/24 09:45 [facility] (Rec: 03/11/24 08:22 [facility] [id number]) Current Condition History of Current Condition Onset Date during her 3rd trimester of Current Complaints anterior L pelvic and hip pain , stress incontinence History of Current Condition 28 yo female appr 6 months from c- section delivery with stress incontinence symptoms and pelvic pain. The left side of her hip and anterior pelvis it started to get really painful and she fells like she has to put it back in place. She reports when she moves her hip to realign it she will notice leakage and when she coughs and sneezes she leaks. Her baby was 7# 12 oz She has been primarly walking for exercises and does stair master SHe has a history of chrons and Ulcerative colitis. She works in [employer] for the [employer]. She is primarily sitting. She does have some complaints of pelvic heaviness. Treatment Goals Patient/Caregiver Goals Treatment goals include reducing both pain and urinary incontinence Prior Functional Status Baseline Function- ADL's Independent Baseline Function- Mobility Independent Baseline Function- Other prior to [place] reports no symptoms of anterior hip pain or urinary incontinence PT-OP-C Subjective Start: 03/11/24 08:17 Freq: Status: Active Protocol: Document 07/01/24 13:12 [facility] (Rec: 07/01/24 13:13 [facility] [id number]) OP-PT Subjective Patient Comments Patient Comments pt notes she though her appt was at 9:30 this am instead of 9:00 so is 15 min late to appt Her son is betting bigger and she is feeling some low back soreness carrying him PT-OP-F Manual Assessment Start: 03/11/24 08:17 Freq: Status: Active Protocol: Document 03/11/24 09:45 [facility] (Rec: 03/12/24 12:35 [facility] [id number]) Manual Assessments Soft Tissue Assessment Soft Tissue Mobility Assessment left lateral wall of the levator ani guarded and tight iliopsoas tightness B but R > L + prabha test bilaterally Joint Mobility Assessment Joint Mobility Assessment post SI joint instability with + ASLR test PT-OP-I Pelvic Floor Start: 03/11/24 08:17 Freq: Status: Active Protocol: Document 03/11/24 09:45 [facility] (Rec: 03/12/24 12:35 [facility] [id number]) Pelvic Floor Assessment Urine Pelvic Floor Surgery No Urinary Symptoms Urge Sensation Other Urinary Symptoms nocturia x 2 leakage with exercise and with change of positions such as sit-stand Leakage Size Medium Leakage Cause Cough,Exercise,Lifting,Sneeze, Urge Leaks Per Day 2 Voiding Frequency 11-14 Nocturia 2 Urine Pad Type Panty Liner Pelvic Clock Pelvic Clock 3-6 Guarding,Tightness Contraction Ability Voluntary Contraction Weak Voluntary Relaxation Weak Manual Muscle Testing Left 2 Manual Muscle Testing Right 2 Manual Muscle Testing Anterior 2 Manual Muscle Testing Posterior 2 Muscle Endurance (Seconds) 5 PT-OP-J Posture/Palpation/Skin Start: 03/11/24 08:17 Freq: Status: Active Protocol: Document 03/11/24 09:45 [facility] (Rec: 03/12/24 12:35 [facility] [id number]) Posture Evaluation Comments Posture Comments [place] stands in a increased anterior pelvic tilt Palpation Assessment Location anterior left hip Palpation Findings Soft Tissue Tightness,Muscle Guarding,Tenderness Palpation Details tenderness at the femoral head onterirly on the left, symptoms increase with PROM and AROM hip flexion PT-OP-K Range of Motion Start: 03/12/24 12:35 Freq: Status: Active Protocol: Document 03/11/24 09:45 [facility] (Rec: 03/12/24 12:36 [facility] [id number]) Hip Goniometric Range of Motion Hip Left Hip ROM WFL No Testing Position Supine Flexion w/Knee Flexed 110 Comments anterior pinching pain at end range hip flexion of 110 on the left tightness in the iliopsoas limiting hip extension B in the prabha test position PT-OP-Q Treatments Start: 03/11/24 08:17 Freq: Status: Active Protocol: Document 07/01/24 09:16 [facility] (Rec: 07/01/24 09:44 [facility] [id number]) Therapeutic Exercises Supine Exercises quick flicks Reps/Minutes x10 piriformis stretch Reps/Minutes hold 1-2 min hip roll outs with theraband Reps/Minutes x 20 reps hip flexor stretch in prabha test position Supine Exercise Name right side tighter than the left Side bilateral Reps/Minutes hold 1-2 min pelvic floor long holds Supine Exercise Name able to rest to baseline Reps/Minutes x 10 reps Comments average of 13.3 and max 30 single knee to chest Reps/Minutes hold 1-2 min PT-OP-T Assessment and Plan Start: 03/11/24 08:17 Freq: Status: Active Protocol: Document 07/01/24 09:16 [facility] (Rec: 07/01/24 09:44 [facility] [id number]) Physical Therapy Assessment Assessment Summary Assessment endurance is improved overall fo the pelvic floor and [place] is tolerating exercises well, she is still feeing some right sided anterior hip pain, add in adductor stretches next visit Physical Therapy Plan Frequency and Duration Frequency of Treatment 1x/Week Duration of treatment (weeks) 12 Plan of Care Start Date 06/24/24 Plan of Care End Date 09/16/24 Therapeutic Interventions Therapeutic Interventions Home Exercise Program,Manual Therapy,Neuromuscular Re- education,Patient/Caregiver Education,Self-Care/Home Management,Soft Tissue Mobilization,Therapeutic Exercises Modalities Biofeedback Next Visit Focus/Plan Next Note Type Treatment Note Next Visit Plan Continue progressing stabilzation exercises as pt can tolerate and add in dynamic adductor hip stretches
--- NOTE | 2024-07-08 16:12 | PT.OTN ---
Current Diagnoses Stress incontinence (female) (male) (07/08/24) Encounter for routine follow-up (07/08/24) Physical Therapy Treatment Note PT-OP-A Visit Information Start: 03/11/24 08:17 Freq: Status: Active Protocol: Document 07/08/24 15:23 [facility] (Rec: 07/08/24 16:00 [facility] [id number]) Out-Patient Physical Therapy Visit Information Visit Information Visit Type Treatment Note Visit Start Time 15:20 Visit Stop Time 16:00 Visit Number 8 PT-OP-B Current Condition Start: 03/11/24 08:17 Freq: Status: Active Protocol: Document 03/11/24 09:45 [facility] (Rec: 03/11/24 08:22 [facility] [id number]) Current Condition History of Current Condition Onset Date during her 3rd trimester of Current Complaints anterior L pelvic and hip pain , stress incontinence History of Current Condition 28 yo female appr 6 months from c- section delivery with stress incontinence symptoms and pelvic pain. The left side of her hip and anterior pelvis it started to get really painful and she fells like she has to put it back in place. She reports when she moves her hip to realign it she will notice leakage and when she coughs and sneezes she leaks. Her baby was 7# 12 oz She has been primarly walking for exercises and does stair master SHe has a history of chrons and Ulcerative colitis. She works in [employer] for the [employer]. She is primarily sitting. She does have some complaints of pelvic heaviness. Treatment Goals Patient/Caregiver Goals Treatment goals include reducing both pain and urinary incontinence Prior Functional Status Baseline Function- ADL's Independent Baseline Function- Mobility Independent Baseline Function- Other prior to [place] reports no symptoms of anterior hip pain or urinary incontinence PT-OP-C Subjective Start: 03/11/24 08:17 Freq: Status: Active Protocol: Document 07/08/24 15:23 [facility] (Rec: 07/08/24 16:00 [facility] [id number]) OP-PT Subjective Patient Comments Patient Comments pt notes she has been wearing a waist guide dog trainer and it has been helping. She still feels the pelvic pressure PT-OP-F Manual Assessment Start: 03/11/24 08:17 Freq: Status: Active Protocol: Document 03/11/24 09:45 [facility] (Rec: 03/12/24 12:35 [facility] [id number]) Manual Assessments Soft Tissue Assessment Soft Tissue Mobility Assessment left lateral wall of the levator ani guarded and tight iliopsoas tightness B but R > L + prabha test bilaterally Joint Mobility Assessment Joint Mobility Assessment post SI joint instability with + ASLR test PT-OP-I Pelvic Floor Start: 03/11/24 08:17 Freq: Status: Active Protocol: Document 03/11/24 09:45 [facility] (Rec: 03/12/24 12:35 [facility] [id number]) Pelvic Floor Assessment Urine Pelvic Floor Surgery No Urinary Symptoms Urge Sensation Other Urinary Symptoms nocturia x 2 leakage with exercise and with change of positions such as sit-stand Leakage Size Medium Leakage Cause Cough,Exercise,Lifting,Sneeze, Urge Leaks Per Day 2 Voiding Frequency 11-14 Nocturia 2 Urine Pad Type Panty Liner Pelvic Clock Pelvic Clock 3-6 Guarding,Tightness Contraction Ability Voluntary Contraction Weak Voluntary Relaxation Weak Manual Muscle Testing Left 2 Manual Muscle Testing Right 2 Manual Muscle Testing Anterior 2 Manual Muscle Testing Posterior 2 Muscle Endurance (Seconds) 5 PT-OP-J Posture/Palpation/Skin Start: 03/11/24 08:17 Freq: Status: Active Protocol: Document 03/11/24 09:45 [facility] (Rec: 03/12/24 12:35 [facility] [id number]) Posture Evaluation Comments Posture Comments [place] stands in a increased anterior pelvic tilt Palpation Assessment Location anterior left hip Palpation Findings Soft Tissue Tightness,Muscle Guarding,Tenderness Palpation Details tenderness at the femoral head onterirly on the left, symptoms increase with PROM and AROM hip flexion PT-OP-K Range of Motion Start: 03/12/24 12:35 Freq: Status: Active Protocol: Document 03/11/24 09:45 [facility] (Rec: 03/12/24 12:36 [facility] [id number]) Hip Goniometric Range of Motion Hip Left Hip ROM WFL No Testing Position Supine Flexion w/Knee Flexed 110 Comments anterior pinching pain at end range hip flexion of 110 on the left tightness in the iliopsoas limiting hip extension B in the prabha test position PT-OP-Q Treatments Start: 03/11/24 08:17 Freq: Status: Active Protocol: Document 07/08/24 15:23 [facility] (Rec: 07/08/24 16:00 [facility] [id number]) Therapeutic Exercises Supine Exercises quick flicks Reps/Minutes x10 TA with november Reps/Minutes x 20 reps templates for coordination and eccentric control Reps/Minutes x 5 min pelvic floor long holds Supine Exercise Name able to rest to baseline Reps/Minutes x 10 reps Comments average 13.7 andm ax of 36 Standing Exercises dynamic adductor stretch Reps/Minutes x 5-10 reps PT-OP-T Assessment and Plan Start: 03/11/24 08:17 Freq: Status: Active Protocol: Document 07/08/24 15:23 [facility] (Rec: 07/08/24 16:00 [facility] [id number]) Physical Therapy Assessment Goals 4 Impairment Decreased pelvic floor strength and endurance Short Term Goal (STG) [place] is able to sustain a pelvic floor contraction x 10 seconds in supine excellent progress STG Duration 4 weeks Field Coordinator Goal (LTG) [place] is able to sustain a pelvic floor contraction in standing x 5 seconds goal not yet met LTG Duration 12 weeks 3 Impairment Urinary stress incontinence occuring approx 2 times per day with post pelvic floor weakness Short Term Goal (STG) [place] is educated on a home program for pelvic floor strengtheing goal met STG Duration 4 weeks Fdc Goal (LTG) [place] reports a overall reduction of urinary incontinence goal met LTG Duration 12 weeks 2 Impairment Iliopsoas tightness B contributing to a anterior pelvic tilt and hip impingement symptoms Short Term Goal (STG) [place] is educated in iliopsoas stretches and neutral pelvic alignment STG Duration 4 weeks Fdc Goal (LTG) [place] presents with improved length of the iliopsoas B and is able to recycling assistant a neutral pelvic position good progress LTG Duration 12 weeks 1 Impairment Anterior hip and pelvic pain rated 3/10 that developed during Field Coordinator Goal (LTG) [place] reports a overall reduction of pain in the anterior hip to 0-1/10 LTG Duration 12 weeks Assessment Summary Assessment [place] did well with adductor stretches and could feel tightness more on the right side. She is showing improved strength of the pelvic floor and resting tone is at baseline Physical Therapy Plan Frequency and Duration Frequency of Treatment 1x/Week Duration of treatment (weeks) 12 Plan of Care Start Date 06/24/24 Plan of Care End Date 09/16/24 Therapeutic Interventions Therapeutic Interventions Home Exercise Program,Manual Therapy,Neuromuscular Re- education,Patient/Caregiver Education,Self-Care/Home Management,Soft Tissue Mobilization,Therapeutic Exercises Modalities Biofeedback Next Visit Focus/Plan Next Note Type Treatment Note Next Visit Plan review adductor dynamic stretches and continue progressing stabilization exercises
--- NOTE | 2024-10-23 12:01 | PT.OPDS ---
Current Diagnoses Stress incontinence (female) (male) (07/08/24) Encounter for routine follow-up (07/08/24) Visit Care Team Role Provider Type Lulu White MD Primary Care Provider Physician Specialty: Gynecology ASIC ENGINEER Obstetrics Address: [address] [place] [address], [id number] Email: [email or web address] Marilu Mock MD, PHD Family Provider Non-Staff Specialty: Internal Medicine Address: [address] [place] [address], [id number] Email: Lv Barker DO Attending Provider Non-Staff Referring Provider Specialty: Family Practice Address: [address] [place] [address], [id number] Email: Visit Number Visit Number 8 Discharge Summary PT-OP-B Current Condition Start: 03/11/24 08:17 Freq: Status: Active Protocol: Document 03/11/24 09:45 [facility] (Rec: 03/11/24 08:22 [facility] [id number]) Current Condition History of Current Condition Onset Date during her 3rd trimester of Current Complaints anterior L pelvic and hip pain , stress incontinence History of Current Condition 28 yo female appr 6 months from c- section delivery with stress incontinence symptoms and pelvic pain. The left side of her hip and anterior pelvis it started to get really painful and she fells like she has to put it back in place. She reports when she moves her hip to realign it she will notice leakage and when she coughs and sneezes she leaks. Her baby was 7# 12 oz She has been primarly walking for exercises and does stair master SHe has a history of chrons and Ulcerative colitis. She works in [email or web address] for the [employer]. She is primarily sitting. She does have some complaints of pelvic heaviness. Treatment Goals Patient/Caregiver Goals Treatment goals include reducing both pain and urinary incontinence Prior Functional Status Baseline Function- ADL's Independent Baseline Function- Mobility Independent Baseline Function- Other prior to [place] reports no symptoms of anterior hip pain or urinary incontinence PT-OP-C Subjective Start: 03/11/24 08:17 Freq: Status: Active Protocol: Document 07/08/24 15:23 [facility] (Rec: 07/08/24 16:00 [facility] [id number]) OP-PT Subjective Patient Comments Patient Comments pt notes she has been wearing a waist development trainer and it has been helping. She still feels the pelvic pressure PT-OP-F Manual Assessment Start: 03/11/24 08:17 Freq: Status: Active Protocol: Document 03/11/24 09:45 [facility] (Rec: 03/12/24 12:35 [facility] [id number]) Manual Assessments Soft Tissue Assessment Soft Tissue Mobility Assessment left lateral wall of the levator ani guarded and tight iliopsoas tightness B but R > L + prabha test bilaterally Joint Mobility Assessment Joint Mobility Assessment post SI joint instability with + ASLR test PT-OP-I Pelvic Floor Start: 03/11/24 08:17 Freq: Status: Active Protocol: Document 03/11/24 09:45 [facility] (Rec: 03/12/24 12:35 [facility] [id number]) Pelvic Floor Assessment Urine Pelvic Floor Surgery No Urinary Symptoms Urge Sensation Other Urinary Symptoms nocturia x 2 leakage with exercise and with change of positions such as sit-stand Leakage Size Medium Leakage Cause Cough,Exercise,Lifting,Sneeze, Urge Leaks Per Day 2 Voiding Frequency 11-14 Nocturia 2 Urine Pad Type Panty Liner Pelvic Clock Pelvic Clock 3-6 Guarding,Tightness Contraction Ability Voluntary Contraction Weak Voluntary Relaxation Weak Manual Muscle Testing Left 2 Manual Muscle Testing Right 2 Manual Muscle Testing Anterior 2 Manual Muscle Testing Posterior 2 Muscle Endurance (Seconds) 5 PT-OP-J Posture/Palpation/Skin Start: 03/11/24 08:17 Freq: Status: Active Protocol: Document 03/11/24 09:45 [facility] (Rec: 03/12/24 12:35 [facility] [id number]) Posture Evaluation Comments Posture Comments [place] stands in a increased anterior pelvic tilt Palpation Assessment Location anterior left hip Palpation Findings Soft Tissue Tightness,Muscle Guarding,Tenderness Palpation Details tenderness at the femoral head onterirly on the left, symptoms increase with PROM and AROM hip flexion PT-OP-K Range of Motion Start: 03/12/24 12:35 Freq: Status: Active Protocol: Document 03/11/24 09:45 [facility] (Rec: 03/12/24 12:36 [facility] [id number]) Hip Goniometric Range of Motion Hip Left Hip ROM WFL No Testing Position Supine Flexion w/Knee Flexed 110 Comments anterior pinching pain at end range hip flexion of 110 on the left tightness in the iliopsoas limiting hip extension B in the prabha test position PT-OP-T Assessment and Plan Start: 03/11/24 08:17 Freq: Status: Active Protocol: Document 10/23/24 12:00 [facility] (Rec: 10/23/24 12:01 [facility] [id number]) Physical Therapy Assessment Goals 4 Impairment Decreased pelvic floor strength and endurance Short Term Goal (STG) [place] is able to sustain a pelvic floor contraction x 10 seconds in supine excellent progress STG Duration 4 weeks [facility] Goal (LTG) [place] is able to sustain a pelvic floor contraction in standing x 5 seconds goal not yet met LTG Duration 12 weeks 3 Impairment Urinary stress incontinence occuring approx 2 times per day with post pelvic floor weakness Short Term Goal (STG) [place] is educated on a home program for pelvic floor strengtheing goal met STG Duration 4 weeks [facility] Goal (LTG) [place] reports a overall reduction of urinary incontinence goal met LTG Duration 12 weeks 2 Impairment Iliopsoas tightness B contributing to a anterior pelvic tilt and hip impingement symptoms Short Term Goal (STG) [place] is educated in iliopsoas stretches and neutral pelvic alignment STG Duration 4 weeks Groutman Goal (LTG) [place] presents with improved length of the iliopsoas B and 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 She was progressing well with PT. She will be dishcarged to a I HEP at this time Physical Therapy Plan Discharge Physical Therapy Discharge Reasons No Longer Attending PT
== END 2024-10-23 14:29 | disposition home or self-care (01) ==
LOC: PHYS 15:15
PROVIDERS: Family Provider Internal Medicine Medical Oncology; PCP Obstetrics & Gynecology; Referring Provider Student in an Organized Health Care Education/Training Program; Visit Provider Student in an Organized Health Care Education/Training Program
DX: Z39.2 Encounter for routine postpartum follow-up (principal); N39.3 Stress incontinence (female) (male)
CPT/HCPCS: 97110; 97140; 97161; 97535

== ENCOUNTER 2024-10-08 12:20 | Emergency (ER) | payer OTHER, SELFPAY ==
[2024-10-08 12:21] VITALS: BP 121/70; PULSE 102; RESP 18; TEMP 36.6; O2SAT 97; BMI 32.8
--- NOTE | 2024-10-08 12:21 | ED_ITS ---
HPI - General Adult General Chief complaint: Urogenital-Female Stated complaint: sent by PCP, r/o ectopic Time Seen by Provider: 10/08/24 12:21 History of Present Illness HPI narrative: 29-year-old when ectopic with IUD currently in place comes in with symptoms. She describes increased sensitivity to smells, slight nausea, food aversion pelvic cramping. She did have intercourse close to the time she was ovulating in August. LMP was 12 11. [place] had a blood test that showed her quantitative hCG was less than 1. Her doctor was still concerned that she might have another ectopic with misleading hCG levels because of her IUD. She comes in for further evaluation. She is not having abdominal pain, there was low pelvic and possibly right pelvis/adnexal cramping only and no bleeding. Related Data Home Medications Medication Instructions Recorded Confirmed adalimumab 40 mg/0.8 mL 40 mg SUBCUT Q2W 01/23/23 05/18/23 subcutaneous syringe kit (Humira) budesonide 3 mg 9 mg PO DAILY 01/23/23 05/18/23 capsule,delayed,extended release calcium 500 mg (as 1 tab PO DAILY 01/23/23 05/18/23 carbonate)-vitamin D3 3.125 mcg (125 unit) tablet cetirizine 10 mg tablet 10 mg PO DAILY PRN allergies 01/23/23 05/18/23 prenat.vits,braxton,qlu-[id number]-ypybc 1 tab PO DAILY 01/23/23 05/18/23 Previous Rx's Medication Instructions Recorded ondansetron 4 mg disintegrating 4 mg PO Q6H PRN nausea and 02/21/23 tablet vomiting #20 tabs amoxicillin 500 mg tablet 500 mg PO BID #20 tabs 02/22/23 Allergies Allergy/AdvReac Type Severity Reaction Status Date / Time No Known Drug Allergies Allergy Verified 05/18/23 11:27 Review of Systems Review of Systems Narrative: Pertinent positive and negative findings as per HPI Patient History Medical History Migraine Seasonal allergies Ectopic (~02/2017) Surgical History H/O unilateral salpingectomy H/O laparoscopy (~2014) Family History Grandmother DVT (deep venous thrombosis) Hyperlipidemia Hypertension Mother DVT (deep venous thrombosis) Grandfather Hyperlipidemia Hypertension Father Family estrangement Social History marital status: unmarried,single number of children: 0 household members: other lives independently: Yes caregiver/support person: No housing: other [place], shared housing w/ other sailors) pets and animals: No education level: college (some college) 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) dilia/episcopalian: L[employer] special dilia needs: No travel history: over 6 months ago seatbelt use: always water heater temp set < 120 deg: Yes working smoke detector in home: Yes fire extinguisher in home: Yes carbon monox detector in home: Yes firearms in home: No do you feel safe at home: Yes Smoking Status: Former smoker Tobacco: How many years used: 3 second hand exposure: No alcohol intake: former (occasionally when not ) substance use type: does not use during the past year weight has: increased > 10 lbs well-balanced diet: daily or most days daily servings fruits/ve or more times/day caffeine: No Type(s) of exercise: walking Smoking Status: Former smoker alcohol intake frequency: 0-2 drinks per day Exam Initial Vital Signs Initial Vital Signs: Vital Signs Temperature 97.8 F 10/08/24 12:21 Pulse Rate 102 H 10/08/24 12:21 Respiratory Rate 18 10/08/24 12:21 Blood Pressure 121/70 10/08/24 12:21 Pulse Oximetry 97 10/08/24 12:21 Oxygen Delivery Method Room Air 10/08/24 12:21 General: Alert appropriate in no acute distress Respiratory: Able to speak in full sentences, no obvious respiratory distress Skin: No obvious rashes, warm and dry Neurologic: Grossly intact no obvious asymmetries or abnormalities Psych: appropriate insight and affect, cooperative Course Orders Ordered: ED Orders 10/08/24 12:26 Urine Microscopic Stat 10/08/24 12:52 Beta HCG, Quant [HCG Quantitative /Beta subunit] Stat 10/08/24 13:04 US pelvic complete Stat Vital Signs Vital signs: Vital Signs - 8 hr 10/08/24 12:21 Temperature 97.8 F Pulse Rate 102 H Respiratory Rate 18 Blood Pressure 121/70 Pulse Oximetry 97 Oxygen Delivery Method Room Air Medical Decision Making Lab Data Labs: Lab Results 10/08/24 10/08/24 Range/Units 12:26 12:52 HCG, Quant < 2.39 mIU/mL Urine RBC 1-5/hpf (0-5/HPF) Urine WBC None seen (0-5/HPF) Ur Squamous Epith Cells 1-5 /hpf (0-5/HPF) Urine Bacteria None seen (None) Ur Culture Indicated? Cult not indicated Vol Urine Centrifuged 10ml (spun) Point of Care Testing Test Results Negative Urine Dip Bedside Urine Glucose Negative Bedside Urine Bilirubin - Negative Bedside Urine Ketone - Negative Urine Specific [place] 1.030 Bedside Urine Occult Blood +/- Bedside Urine pH 5.5 Bedside Urine Protein - Negative Bedside Urine Urobilinogen - Negative Bedside Urine Nitrite - Negative Bedside Urine Leukocytes - Negative Esterase Point of care testing: Point of Care Testing Test Results Negative Urine Dip Bedside Urine Glucose Negative Bedside Urine Bilirubin - Negative Bedside Urine Ketone - Negative Urine Specific [place] 1.030 Bedside Urine Occult Blood +/- Bedside Urine pH 5.5 Bedside Urine Protein - Negative Bedside Urine Urobilinogen - Negative Bedside Urine Nitrite - Negative Bedside Urine Leukocytes - Negative Esterase MDM Narrative Medical decision making narrative: CC: Pelvic cramping Complicating co-morbidities: IUD in place Data collected from: patient Differential considered: Premenstrual cramping, IUD related pain. There is reported 1% chance of ectopic with negative hCG that typically is associated with severe abdominal /uterine or adnexal pain. Exam documented above, pertinent findings include: Completely benign exam Lab Test results independently reviewed as above. 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 With shared decision-making we opted to go ahead with a transvaginal ultrasound for reassurance. Discussion: 29-year-old woman who feels that she is , undetectable hCG yesterday and again today. She has a history of a single ectopic previously, her primary care physician was concerned she might be in the 1% of people who have negative HCGs and still have an ectopic . Pelvic ultrasound does not suggest any significant pathology in ovaries, adnexa or uterus. IUD is appropriately placed. Patient has been walking on whether she would like her IUD removed today. Because of the uncertainty I have suggested that she follow up with her primary care physician if she does want to have the IUD removed. At this point there was no evidence of at all and reassurance is given. She is safe for discharge Discharge Plan Departure Patient Disposition: Home Clinical Impression: Pelvic cramping Activity Restrictions/Additional Instructions: Thank you for coming in today You are 100% not at all anywhere. You had a negative hCG test yesterday and again today Your pelvic ultrasound was reassuring with no signs of intrauterine or extra uterine You do not seem entirely decided on whether or not your IUD should stay in or not. I would suggest that we leave it alone for now, if you do wanted out that as a simple procedure to schedule with your primary care physician If you find that you are getting worse or develop any new symptoms, please feel free to return to the emergency department for further evaluation. Prescriptions: No Action prenat.vits,braxton,iua-ylib-cosjd Tablet 1 tab PO DAILY Humira 40 mg/0.8 mL syringe kit 40 mg SUBCUT Q2W budesonide 3 mg capsule,delayed,extend.release 9 mg PO DAILY calcium carbonate-vitamin D3 500 mg-3.125 mcg (125 unit) tablet 1 tab PO DAILY cetirizine 10 mg tablet 10 mg PO DAILY PRN (Reason: allergies) ondansetron 4 mg tablet,disintegrating 4 mg PO Q6H PRN (Reason: nausea and vomiting) Qty: 20 2RF amoxicillin 500 mg tablet 500 mg PO BID Qty: 20 0RF Referrals: Lulu White MD [Physician] - Stand Alone Forms: Patient Portal/API/Survey
--- NOTE | 2024-10-08 13:04 | DI.US.S_ITS ---
PROCEDURE: US PELVIC COMPLETE INDICATIONS: PAIN TECHNIQUE: Real-time scanning was performed of the pelvic organs, with image documentation. Additional endovaginal scanning was necessary due to incomplete visualization of the adnexal and endometrial structures by transabdominal scanning. COMPARISON: None. FINDINGS: Uterus: Uterus is anteverted and normal in size at 7.8 x 4.2 x 5.5 cm. The myometrium is homogeneous. The endometrium measures 3.2 mm combined thickness. IUD is in appropriate location. Ovaries: The right ovary measures 3.1 x 3.1 x 1.7 cm, with a calculated ovarian volume of 8.8 cc. The left ovary measures 3.1 x 2.4 x 1.6 cm, with a calculated ovarian volume of 6.2 cc. 2 cm simple right cysts. Prominent follicle on the left calcification. Other: No pathologic free abdominal or pelvic fluid. IMPRESSION: IUD is in appropriate location. 2 cm simple right ovarian cyst. We strive to produce accurate, complete, and clear reports of imaging services. To assist us in improving patient care, this report was composed using standard report templates and voice recognition software. Therefore, it may contain abnormal punctuation, insertions and/or omissions. Occasional wrong-word or sound-alike substitutions may occur. Though we review the report and make efforts to correct it, we do recommend that the report be read carefully in proper context to recognize any text inaccuracies. Dictated by: Chloe Norris M.D. on 10/08/2024 at 14:33 Approved by: Chloe Norris M.D. on 10/08/2024 at 14:34
[2024-10-08 13:26] LABS: HCG Quantitative /Beta subunit < 2.39 mIU/mL
[2024-10-08 13:55] LABS: Urine Volume 10mL (spun)
[2024-10-08 14:02] LABS: Bacteria Urine None Seen; Culture Indicated Urine Cult Not Indicated; RBC Urine 1-5/HPF (0-5/HPF); Squamous Epithelial Cell Urine 1-5 /HPF (0-5/HPF); WBC Urine None Seen (0-5/HPF)
[2024-10-08 14:27] VITALS: BP 106/61; PULSE 79; RESP 16; TEMP 36.6; O2SAT 95
== END 2024-10-08 14:27 | disposition home or self-care (01) ==
PROVIDERS: Emergency Provider Emergency Medicine; Family Provider Internal Medicine Medical Oncology
DX: R10.2 Pelvic and perineal pain (principal); Z97.5 Presence of (intrauterine) contraceptive device
CPT/HCPCS: 76856; 81003; 81015; 81025; 84702; 99282; 99284